=== PATIENT | female | born 2000 | race Caucasian/White ===

== ENCOUNTER 2023-06-03 10:12 | Outpatient (REF) | payer OTHER, SELFPAY ==
[2023-06-03 18:46] LABS: CT PCR NOT DETECTED (Not Detect.); NG PCR NOT DETECTED (Not Detect.)
[2023-06-04 14:04] LABS: BV Int Neg Control Negative (Negative); BV Int Pos Control Positive (Positive)
[2023-06-24 04:53] LABS: HPV mRNA E6/E7 rflx Not Detected (Not Detected)
== END 2023-06-03 10:13 | disposition home or self-care (01) ==
LOC: HO.LNP 10:12
PROVIDERS: PCP Nurse Practitioner Family; Visit Provider Advanced Practice Midwife
DX: Z01.419 Encounter for gynecological examination (general) (routine) without abnormal findings (principal); D68.51 Activated protein C resistance; Z79.899 Other long term (current) drug therapy; Z11.3 Encounter for screening for infections with a predominantly sexual mode of transmission
CPT/HCPCS: 0353U; 87480; 87510; 87624; 87660; 88142

== ENCOUNTER 2023-06-03 10:12 | Outpatient (AMB) | payer OTHER, SELFPAY ==
--- NOTE | 2023-06-03 10:13 | A.OFFVIS_ITS ---
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 She has never had a pelvic before. She has been sexually active but the last time was about a month ago she uses condoms. She has a strong family history of factor 5 Leiden and her grandmother has it her mother has it and so she got tested when she was very very young. She was told by her hypoid gear tester that she should avoid most hormonal methods of control. When she flew to [place] with her cousin they wore support stockings and did leg exercises while in flight. 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 [facility] Medical History (Updated 06/03/23 @ 10:55 by Jenn Munguia CNM) Acne Factor 5 Leiden mutation, heterozygous Surgical History (Updated 06/03/23 @ 10:19 by Jacey Garvin CMA) Hx of wisdom tooth extraction Family History (Updated 06/03/23 @ 10:20 by Jacey Garvin CMA) Mother Factor 5 Leiden mutation, heterozygous Social History Household Members: Family Housing: House Alcohol intake: current Alcohol intake frequency: holidays/special occasions only Patient Tobacco Use Status: Never used Tobacco Substance Use Type: Marijuana Current occupational status: employed 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 Sexual orientation: Straight/Heterosexual Gender identity: Female Female Reproductive History Menstrual Age of Menarche: 15 Duration of menses: 6-7 days Date of last menstrual period: 05/30/23 Total pregnancies: 0 Physical Exam Vital Signs: BMI result Body Mass Index 24.4 Const General: healthy appearing, comfortable, no acute distress, well developed and alert Nutritional Appearance: average body habitus Orientation/consciousness: patient oriented x3 Limitations: no limitations HEENT Head: Yes normocephalic Neck Neck: Yes normal visual inspection Chest Chest palpation & inspection: normal inspection of the chest Breast/axilla inspection: normal inspection of the breasts and normal inspection of the axillae Breast/axilla palpation: normal palpation of the breasts and normal palpation of the axillae Resp Effort & Inspection: normal respiratory effort GI Inspection: Yes normal to inspection, No Abdominal wall edema and No distended Palpation (GI): Soft to palpation and nontender Other: External vulva within normal limits vagina pink moist healthy appearing with scant normal appearing white discharge cervix is nulliparous pink smooth with small deviated slightly to patient's left along with small nontender midposition uterus. Adnexa not enlarged on either side able to palpate ligaments easily. No masses palpable. General: Yes bladder normal to palpation External Female Exam: normal external appearance and normal appearance of the urethra Speculum Exam - Vagina: normal appearance of the vagina, normal palpation and normal vaginal discharge Speculum Exam - Cervix: normal appearance of the cervix, normal palpation and nontender Bimanual exam- vagina & uterus: normal bimanual exam, normal palpation, uterine size normal, bladder normal to palpation, consistency normal, normal palpation, uterine mobility normal, uterine shape normal, No Cervical tenderness present, non-tender and no cervical motion tenderness Bimanual Exam- Adnexa, other: normal adnexae, no masses, normal and No adnexal tenderness Neuro General: patient oriented x3 Assessment & Plan Assessment & Plan (1) control counseling: Code(s): Z30.09 - Encounter for other general counseling and advice on contraception (2) Well woman exam with routine gynecological exam: Code(s): Z01.419 - Encounter for gynecological examination (general) (routine) without abnormal findings (3) Cervical cancer screening: Comment: First Pap 06/03/2023, has had Gardasil vaccine with Dr. Gonzalez at [facility]. Code(s): Z12.4 - Encounter for screening for malignant neoplasm of cervix (4) Screen for sexually transmitted diseases: Code(s): Z11.3 - Encounter for screening for infections with a predominantly sexual mode of transmission (5) Factor 5 Leiden mutation, heterozygous: Code(s): D68.51 - Activated protein C resistance Plan -----Discussed in this visit the following: healthy balanced diet, regular and consistent exercise, getting recommended health screens, doing the best she can for her particular health concerns, kegel exercises, pap smear screening and followup recommendations, mammography screening and SBE, normal changes in cycles in her life stage--- .----I reviewed available options for Control Methods and their associated side effect profiles. In particular, we discussed the method most of interest to her. Discussed that the methods of most concern given her inherited blood clotting issue would be control pills however all of the hormonal methods list some concern about blood clot formation to varying degrees. Discussed that for now condoms are very good in safe method when use consistently. Also discussed ParaGard IUD which is hormone free which she was not interested in at this time. Testing offered for STIs and recommended during the pelvic exam she declined blood work and believes some of it may have been done for school reasons. ---discussed what she has been told about the factor 5 Leiden issue and she seems aware of the family tendency for blood clot formation and has acted accordingly when appropriate. Reviewed exercise in general and Kegel's. Discussed her very normal anatomy and the normal patric of the vagina and that while we are testing for Gardnerella and Cathi they can be part of the normal patric and only need to be treated if they are symptomatic and causing difficulty she is not having symptoms and she has a very very normal appearing discharge at this time and pink healthy mucosa. Discussed the common finding of anatomical difference of her uterus being slightly levo rotated (to her left) and that this probably does not signify I anything I did offer a pelvic ultrasound on the off chance that she might have some sort of cyst or something that could explain it but as she is not having pain and not having any difficulty with it she decided against it for now. Her anatomy was completely within normal limits and there was no mass palpable on the right side. Good tone with Kegel Orders: Orders Bacterial Vaginosis Panel Today Z01.419 - Encounter for gynecological examination (general) (routine) without abnormal findings, Z11.3 - Encounter for screening for infections with a predominantly sexual mode of transmission CT NG by PCR Today Z01.419 - Encounter for gynecological examination (general) (routine) without abnormal findings, Z11.3 - Encounter for screening for infections with a predominantly sexual mode of transmission Pap Smear Today Z01.419 - Encounter for gynecological examination (general) (routine) without abnormal findings, Z11.3 - Encounter for screening for infections with a predominantly sexual mode of transmission Coding Level of Care Code New Pt Prev Care 18-39yr([id number] Diagnoses control counseling Z30.09 Well woman exam with routine gynecological exam Z01.419 Cervical cancer screening Z12.4 Screen for sexually transmitted diseases Z11.3 Factor 5 Leiden mutation, heterozygous D68.51
[2023-06-03 10:16] VITALS: BMI 24.4
== END 2023-06-03 11:06 | disposition home or self-care (01) ==
LOC: HO.HWS 10:12
PROVIDERS: PCP Nurse Practitioner Family; Visit Provider Advanced Practice Midwife
DX: Z30.09 Encounter for other general counseling and advice on contraception (principal); Z01.419 Encounter for gynecological examination (general) (routine) without abnormal findings; Z12.4 Encounter for screening for malignant neoplasm of cervix; Z11.3 Encounter for screening for infections with a predominantly sexual mode of transmission; D68.51 Activated protein C resistance
CPT/HCPCS: 99385

== ENCOUNTER 2023-06-17 08:49 | Outpatient (AMB) | payer OTHER, SELFPAY ==
--- NOTE | 2023-06-17 08:51 | A.OFFPC_ITS ---
Vital Signs 06/17/23 08:54 Height 5 ft 7 in Weight 158 lb 6 oz BMI 24.8 BP 100/60 Blood Pressure Location Lt brachial Position Sitting Pulse 66 Pulse Source Pulse Oximeter Pulse Oximetry (%) 99 Oxygen Delivery Method Room Air Intake Visit Reasons: New patient-requesting physical Intake Note: Patient is a new patient here to establish care for Factor 5. Transferring care from Dr Magaña ([facility]). Medical records have not been requested and have not received. E Learning Designer Required: No Asbestos Remover: Not Required per policy Accompanied by: Self / Same As Patient Allergies No Known Allergies Allergy (Verified 06/17/23 09:09) Medication List - Last Reconciled 06/17/23 by GIOVANNA Rivas Tobacco use date assessed: 06/17/23 Dental Screening Dental Screen Date: 06/17/23 Did you have a dental visit in the last 12 months?: Yes Did you have a dental problem in the last 6 months where you did not have access to dental care?: No Was dental information given to patient?: Patient has dentist HPI HPI Comments History of Present Illness Details 23-year-old female new patient presents today for physical exam. Past medical history significant for Factor V Leiden mutation. Patient states has bruising more frequently. Patient does have scattered resolving bruising to right lower forearm scattered old bruising right forearm. Denies any recollection of acute injury. Labs ordered to further evaluate. Eye exam: Recommended every couple of years. OBGYN: May 2023, pap smear WNL. Dr. Gonzalez at [facility]. [facility] Medical History Factor 5 Leiden mutation, heterozygous Acne Surgical History History of eye surgery Hx of wisdom tooth extraction Family History (Updated 06/17/23 @ 09:11 by GIOVANNA Rivas) Mother Factor 5 Leiden mutation, heterozygous Father Liver transplant recipient Alcoholic cirrhosis of liver Other Substance use disorder Social History (Updated 06/17/23 @ 09:12 by GIOVANNA Rivas) Household Members: Family Housing: House Alcohol intake: current Alcohol intake frequency: a few times a month Patient Tobacco Use Status: Never used Tobacco Tobacco use type: Smokeless Tobacco e-Cigarette/Vaping Use: Currently Using Second Hand Smoke Exposure: No Substance Use Type: Marijuana service: No Current occupational status: employed Current occupation: Sexual orientation: Straight/Heterosexual Gender identity: Female Cognitive needs: No Hearing needs: No Vision needs: No Female Reproductive History Menstrual Age of Menarche: 15 Questionnaire PHQ-9 Over the last 2 weeks, how often have you been bothered by any of the following problems? 1. Little interest or pleasure in doing things: not at all 2. Feeling down, depressed, or hopeless: not at all 3. Trouble falling or staying asleep, or sleeping too much: not at all 4. Feeling tired or having little energy: not at all 5. Poor appetite or overeating: not at all 6. Feeling bad about yourself - or that you are a failure or have let yourself or your family down: not at all 7. Trouble concentrating on things, such as reading the newspaper or watching television: not at all 8. Moving or speaking so slowly that other people could have noticed. Or the opposite - being so fidgety or restless that you have been moving around a lot more than usual: not at all 9. Thoughts that you would be better off or of hurting yourself in some way: not at all Total score: 0 Depression Screening Interpretation: Negative 38278 - PHQ-9 Billing: Yes Source: Developed by Drs. Baldemar Loo, Kathleen Gray, Rashi Haney and colleagues, with an educational bella from [employer]. Thrive Questionnaire Date Thrive assessed: 06/17/23 I am a: Patient What is your living situation today?: I have a steady place to live Within the past 12 months, did the food you bought not last and you didn't have the money to get more?: Never true Within the past 12 months, did you worry whether your food would run out before you got money to buy more?: Never true Do you have trouble paying for medicines?: No Do you have trouble getting transportation to medical appointments?: No Do you have trouble paying your heating and electricity bill?: No Do you have trouble taking care of your child, family member or friend?: No Do you have trouble with day-to-day activities such as bathing, preparing meals, shopping, managing finances, etc.?: No Are you currently unemployed and looking for a job?: No Are you interested in more education?: No Currently or been in a relationship where the following occur: no concerns reported AUDIT C Alcohol Use Questionnaire (AUDIT-C) 1. How often do you have a drink containing alcohol?: Never Total Score: 0 MANDA-7 AMB Questionnaire MANDA-7 Date MANDA - 7 assessed: 06/17/23 Feeling nervous, anxious, or on edge: 1 = Several days Not being able to stop or control worryin = Several days Worrying too much about different things: 1 = Several days Trouble relaxin = Several days Being so restless that it is hard to sit still: 0 = Not at all Becoming easily annoyed or irritable: 1 = Several days Feeling afraid as if something awful might happen: 0 = Not at all Total MANDA-7 score (0-4 normal; 5-9 mild; 10-14 moderate; 15-21 severe): 5 Source: Developed by Drs. Baldemar Loo, Kathleen Gray, Rashi Haney and colleagues, with an educational bella from [employer]. MANDA-7 Assessment Billing MANDA-7 Assessment Tool: MANDA-7 Assessment 23328 Review of Systems Const Denies chills, Denies fatigue, Denies fever(s) and Denies poor appetite Eyes Denies no additional complaints ENT Reports Normal hearing present Card Denies chest pain, Denies syncope, Denies rapid heart rate and Denies dyspnea Resp Denies cough and Denies dyspnea GI Denies change in stool character, Denies constipation, Denies diarrhea, Denies nausea and Denies vomiting Denies urinary frequency, Denies dysuria and Denies urinary urgency Skin/Breast Reports unusual bruising Neuro Reports Normal hearing present, Denies confusion and Denies syncope Psych Denies confusion Endo Denies fatigue Physical exam (Primary Care) Vital Signs: Last Vital Signs Pulse 66 06/17/23 08:54 BP 100/60 06/17/23 08:54 Pulse Ox 99 06/17/23 08:54 Oxygen Delivery Method Room Air 06/17/23 08:54 BMI result Body Mass Index 24.8 Tobacco/Smoking Status: Tobacco use Status Tobacco use date assessed 06/17/23 06/17/23 09:04 Patient Tobacco Use Status Never used Tobacco 06/17/23 09:12 Tobacco use type Smokeless Tobacco 06/17/23 09:12 e-Cigarette/Vaping Use Currently Using 06/17/23 09:12 PHQ-9: PHQ-9 Score PHQ-9: Total score 0 06/17/23 09:20 Depression Screening Interpretation: Negative Thrive Assessment: Date of Thrive Assessment Date Thrive assessed 06/17/23 06/17/23 09:04 Currently or been in a relationship where the following occur: no concerns reported Const General: No confusion Orientation/consciousness: No confusion HENMT Head: Yes normocephalic and Yes atraumatic Ears: external ears normal and TM's normal bilaterally General nose exam: Normal external nose present and Normal nasal mucous membranes and turbinates present Face and sinus: Yes normal facial exam and Yes sinuses nontender Mouth: moist mucous membranes Throat: Yes tonsils normal Eyes Conjunctivae: conjunctivae normal Sclerae: sclerae normal Pupils: Equal, round and reactive pupils present and Pupils normal by confrontation EOM: EOMs intact bilaterally Direct Ophthalmoscopy: normal light reflex Neck Neck: Yes no lymphadenopathy and Yes supple Thyroid: Thyroid normal Chest Chest palpation & inspection: normal inspection of the chest Resp Effort & Inspection: normal respiratory effort Auscultation: clear to auscultation bilaterally, no crackles, no rhonchi and no wheezes Cardio Rate: regular rate Rhythm: regular rhythm Peripheral pulses: radial pulses present and dorsalis pedis present GI Inspection: Yes normal to inspection Palpation (GI): Soft to palpation, nontender and No hepatosplenomegaly present Auscultation: normoactive bowel sounds Skin Other: Pre fading bruises noted to right lower forearm. General skin exam: no rashes or lesions noted Neuro General: No confusion Cranial nerves: Yes Equal, round and reactive pupils present and Yes Normal hearing present Cognition (Neuro): normal cognition Gait exam (Neuro): Normal gait present Motor exam (neuro): 5/5 motor strength present throughout Deep tendon reflexes (DTR's): Right brachioradialis reflex intensity grade: 2+, Left brachioradialis reflex intensity grade: 2+, Right patellar reflex intensity grade: 2+ and Left patellar reflex intensity grade: 2+ Extrem General: No edema Assessment and Plan Assessment & Plan (1) Factor 5 Leiden mutation, heterozygous: Code(s): D68.51 - Activated protein C resistance (2) Bruising: Code(s): T14.8XXA - Other injury of unspecified body region, initial encounter Plan: CBC and PT/ INR ordered (3) Physical exam, annual: Code(s): Z00.00 - Encounter for general adult medical examination without abnormal findings Plan: Follow up in 1 year. Orders: Orders Prothrombin Time INR Today T14.8XXA - Other injury of unspecified body region, initial encounter Comprehensive Met. Panel Today D68.51 - Activated protein C resistance, T14.8XXA - Other injury of unspecified body region, initial encounter Complete Blood Count Auto Diff Today Z13.0 - Encounter for screening for diseases of the blood and blood-forming organs and certain disorders involving the immune mechanism TSH reflex Free T4 Today Z13.29 - Encounter for screening for other suspected endocrine disorder Coding Level of Care Code New Pt Prev Care 18-39yr(77120 Diagnoses Factor 5 Leiden mutation, heterozygous D68.51 Bruising T14.8XXA Physical exam, annual Z00.00 Additional Codes MANDA-7 Assessment Billing - MANDA-7 Assessment Tool: MANDA-7 Assessment 10652 ([id number])
[2023-06-17 08:54] VITALS: BP 100/60; PULSE 66; O2SAT 99; BMI 24.8
== END 2023-06-17 09:24 | disposition home or self-care (01) ==
PROVIDERS: PCP Nurse Practitioner Family; Visit Provider Nurse Practitioner Family
DX: D68.51 Activated protein C resistance (principal); T14.8XXA Other injury of unspecified body region, initial encounter; Z00.00 Encounter for general adult medical examination without abnormal findings
CPT/HCPCS: 99385

== ENCOUNTER 2023-06-17 09:46 | Outpatient (REF) | payer OTHER, SELFPAY ==
[2023-06-17 10:10] LABS: MANUAL DIFF FLAG NO
[2023-06-17 10:23] LABS: Eosinophils Absolute Auto 0.1 X10*3/uL (0.0-0.4); Eosinophils Percent Auto 1.9 % (0-4); Hematocrit 42.6 % (37.0-47.0); Hemoglobin 14.2 g/dl (12.0-16.0); Imm Gran Abs Auto 0.01 X10*3/uL (0.00-0.03); Imm Gran Pct Auto 0.2 % (0.0-0.4); Lymphocytes Absolute Auto 1.6 X10*3/uL (1.2-4.9); Lymphocytes Percent Auto 38.6 % (20-40); Mean Corpuscular HGB Conc 33.3 g/dl (31.0-35.0); Mean Corpuscular Hemoglobin 29.1 pg (27.0-33.0); Mean Corpuscular Volume 87.3 fL (80.0-98.0); Mean Platelet Volume 11.4 fL (9.4-12.3); Monocytes Absolute Auto 0.4 X10*3/uL (0.1-1.2); Neutrophils Percent Auto 48.3 % (45-73); Platelet Count 180 X10*3/uL (160-400); Red Blood Count 4.88 X10*6/uL (4.20-5.50); Red Cell Distribution Width 12.8 % (11.0-16.0); White Blood Count 4.2 X10*3/uL (4.8-10.8)
[2023-06-17 10:39] LABS: Prothrombin Time 11.6 SEC (11.1-13.3)
[2023-06-17 11:01] LABS: Alanine Aminotransferase 8 U/L (0-31); Albumin Level 4.6 g/dL (3.5-5.0); Alkaline Phosphatase 52 U/L (39-117); Anion Gap 9 (12-20); Aspartate Amino Transferase 14 U/L (5-31); Bilirubin Total 0.9 mg/dL (0.0-1.0); Blood Urea Nitrogen 6 mg/dL (9-16); Calcium 9.8 mg/dL (8.4-10.2); Carbon Dioxide 28 mmol/L (22-29); Chloride 106 mmol/L (96-108); Estimated Glomerular Filt Rate > 60; Glucose Random 84 mg/dL (60-115); Potassium 3.8 mmol/L (3.3-5.1); Sodium 139 mmol/L (135-145); Total Protein 7.2 g/dL (6.5-8.0)
[2023-06-17 11:21] LABS: TSH reflex Free T4 1.05 uIU/mL (0.32-4.0)
== END 2023-06-17 09:47 | disposition home or self-care (01) ==
LOC: HO.LAB 09:46
PROVIDERS: PCP Nurse Practitioner Family; Visit Provider Nurse Practitioner Family
DX: D68.51 Activated protein C resistance (principal); T14.8XXA Other injury of unspecified body region, initial encounter; Z13.0 Encounter for screening for diseases of the blood and blood-forming organs and certain disorders involving the immune mechanism; Z13.29 Encounter for screening for other suspected endocrine disorder
CPT/HCPCS: 36415; 80053; 84443; 85025; 85610

== ENCOUNTER → 2023-11-14 15:23 | Outpatient (AMB) | payer OTHER, SELFPAY ==
--- NOTE | 2023-11-14 15:39 | AM.OFFWIN_ITS ---
Intake Vital Signs 11/14/23 15:40 Height 5 ft 7 in Weight 165 lb BMI 25.8 BP 110/70 Blood Pressure Location Rt brachial Position Sitting Pulse 104 H Pulse Source Pulse Oximeter Pulse Oximetry (%) 96 Oxygen Delivery Method Room Air Intake Visit Reasons: ? UTI Intake Note: Patient is here today for possible uti, Symptoms are burning, frequency, disco mfort on set four days ago. Otc with some relief Patient Tobacco Use Status: Never used Tobacco Manager Wound Care Required: No Sales Representative Metals: Not Required per policy Accompanied by: Self / Same As Patient Allergies No Known Allergies Allergy (Verified 11/14/23 16:30) Medication List - Last Reconciled 11/14/23 by GIOVANNA Ybarra-SHERI No Known Home Meds Do you need a note to return to daycare/school/sports/work: No HPI HPI Comments History of Present Illness Details Thinks she has a UTI Last one about 3 months ago Denies more than 3 UTI/year Sx: burning w/ urination, frequency, incomplete bladder emptying Sx started on Friday. Self tx w/ Cystex this resolved sx. Now only having mild sx in the AM upon waking. LMP 10/15/23 Denies chance of preg, vaginal discharge, n/v, fever Did have mild vaginal itch PFSH Medical History Factor 5 Leiden mutation, heterozygous Acne Surgical History History of eye surgery Hx of wisdom tooth extraction Family History Mother Factor 5 Leiden mutation, heterozygous Father Liver transplant recipient Alcoholic cirrhosis of liver Other Substance use disorder Social History (Updated 06/17/23 @ 09:12 by GIOVANNA Rivas) Household Members: Family Housing: House Alcohol intake: current Alcohol intake frequency: a few times a month Patient Tobacco Use Status: Never used Tobacco Tobacco use type: Smokeless Tobacco e-Cigarette/Vaping Use: Currently Using Second Hand Smoke Exposure: No Substance Use Type: Marijuana service: No Current occupational status: employed 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 Sexual orientation: Straight/Heterosexual Gender identity: Female Cognitive needs: No Hearing needs: No Vision needs: No Female Reproductive History Menstrual Age of Menarche: 15 Review of Systems Const All systems reviewed & are unremarkable except as noted in HPI and below Physical Exam Vital Signs: Last Vital Signs Pulse 104 H 11/14/23 15:40 BP 110/70 11/14/23 15:40 Pulse Ox 96 11/14/23 15:40 Oxygen Delivery Method Room Air 11/14/23 15:40 BMI result Body Mass Index 25.8 Const Other: Awake alert oriented Mucous membranes moist Regular rate and rhythm Lung sounds clear To auscultation bilat no CVAT bilat No suprapubic tenderness Results AMB Urinalysis, Automated UA Leukoctes 0 Lilibeth/uL Last Edit by STERLING Medina on 11/14/23 15:53 UA Nitrite Negative Last Edit by Yvan Luke [facility] on 11/14/23 15:53 UA Urobilinogen 0 mg/dL Last Edit by Yvan Luke [facility] on 11/14/23 15:53 UA Protein 0 mg/dL Last Edit by Yvan Luke [facility] on 11/14/23 15:53 UA pH 7.5 Last Edit by Yvan Luke [facility] on 11/14/23 15:53 UA Blood 0 Sreedhar/uL Last Edit by Yvan Luke [facility] on 11/14/23 15:53 UA Specific [place] 1.010 Last Edit by Yvan Luke [facility] on 11/14/23 15: 53 UA Ketone Negative Last Edit by STERLING Medina on 11/14/23 15:53 UA Bilirubin 0 mg/dL Last Edit by Yvan Luke [facility] on 11/14/23 15:53 UA Glucose 0 mg/dL Last Edit by Yvan Luke [facility] on 11/14/23 15:53 Results Reviewed Results Reviewed: Laboratory Last Values Urine pH (Auto) 7.5 11/14/23 15:51 Specific [place] (Auto) 1.010 11/14/23 15:51 Urine Protein (Auto) 0 mg/dL 11/14/23 15:51 Glucose (UA)(Auto) 0 mg/dL 11/14/23 15:51 Urine Ketones (Auto) Negative 11/14/23 15:51 Urine Blood (Auto) 0 Sreedhar/uL 11/14/23 15:51 Urine Nitrite (Auto) Negative 11/14/23 15:51 Urine Bilirubin (Auto) 0 mg/dL 11/14/23 15:51 Urine Urobilinogen (Auto) 0 mg/dL 11/14/23 15:51 Leukocyte Esterase (Auto) 0 Lilibeth/uL 11/14/23 15:51 Assessment & Plan Assessment & Plan (1) UTI symptoms: Code(s): R39.9 - Unspecified symptoms and signs involving the genitourinary system Plan Urine dip today is negative in the setting of taking an [id number] remedy. I have advised her to withhold this medication for 48 hours and if her symptoms are still present then she can go ahead and submit a urine sample. I have given her the collection device in the order is on file. I have asked that she send me a message in the portal if she is to submit a urine sample so that I can be aware and keep an eye on this. Orders: Orders UA CC w/rflx Micro + Cult Today R39.9 - Unspecified symptoms and signs involving the genitourinary system AMB Urinalysis Automated Today Z13.9 - Encounter for screening, unspecified Coding Level of Care Code Est Pt Level 3 (05246) Diagnoses UTI symptoms R39.9
[2023-11-14 15:40] VITALS: BP 110/70; PULSE 104; O2SAT 96; BMI 25.8
[2023-11-14 21:33] LABS: Appearance Urine Clear; Color Urine Yellow; Glucose Urine UA Negative (Negative); Leukocyte Esterase Urine Negative (Negative); Nitrite Urine Negative (Negative); Specific Gravity - Urine <= 1.005 (1.005-1.025); Urine Blood Negative (Negative); Urine Ketones Negative (Negative); Urine Protein Negative (Neg-Trace)
== END ==
PROVIDERS: PCP Internal Medicine; Visit Provider Nurse Practitioner Family
DX: R39.9 Unspecified symptoms and signs involving the genitourinary system (principal)
CPT/HCPCS: 81003; 99213

== ENCOUNTER 2023-11-26 12:04 | Outpatient (REF) | payer OTHER, SELFPAY ==
[2023-11-26 14:01] LABS: Appearance Urine Clear; Color Urine Yellow; Glucose Urine UA Negative (Negative); Leukocyte Esterase Urine Negative (Negative); Nitrite Urine Negative (Negative); Specific Gravity - Urine 1.025 (1.005-1.025); Urine Blood Negative (Negative); Urine Ketones Negative (Negative); Urine Protein Negative (Neg-Trace)
== END 2023-11-26 12:05 | disposition home or self-care (01) ==
LOC: HO.HMGCLDS 12:04
PROVIDERS: PCP Internal Medicine; Visit Provider Nurse Practitioner Family
DX: R39.9 Unspecified symptoms and signs involving the genitourinary system (principal)
CPT/HCPCS: 81003

== ENCOUNTER 2023-11-28 09:10 | Outpatient (AMB) | payer OTHER, SELFPAY ==
[2023-11-28 09:15] VITALS: BP 118/68; PULSE 95; TEMP 36.6; O2SAT 99; BMI 24.4
--- NOTE | 2023-11-28 09:15 | AM.OFFWIN_ITS ---
Intake Vital Signs 11/28/23 09:15 Height 5 ft 7 in Weight 156 lb BMI 24.4 BP 118/68 Blood Pressure Location Lt brachial Position Sitting Pulse 95 Pulse Source Pulse Oximeter Temp 97.8 F Temp Source Temporal Artery Scan Pulse Oximetry (%) 99 Oxygen Delivery Method Room Air Intake Visit Reasons: EP STI test Intake Note: pt is here today for STI test Patient Tobacco Use Status: Never used Tobacco Allergies No Known Allergies Allergy (Verified 11/28/23 09:15) Do you need a note to return to daycare/school/sports/work: No HPI EP STI test 2 HPI Details Patient is a 23-year-old female comes to the walk-in clinic complaining of dysuria, vaginal irritation, and urinary frequency but the feeling of not completely being able to void for the last few weeks. She states that urine dips have been unremarkable, so she is also worried about sexually transmitted diseases as she has had unprotected sexual intercourse recently. She denies vaginal discharge, abdominal or pelvic pain, back or flank pain, nausea vomiting or diarrhea, rash, vaginal bleeding, , joint pain or swelling, or other significant associated symptoms. [facility] Medical History Factor 5 Leiden mutation, heterozygous Acne Surgical History History of eye surgery Hx of wisdom tooth extraction Family History Mother Factor 5 Leiden mutation, heterozygous Father Liver transplant recipient Alcoholic cirrhosis of liver Other Substance use disorder Social History Household Members: Family Housing: House Alcohol intake: current Alcohol intake frequency: a few times a month Patient Tobacco Use Status: Never used Tobacco Tobacco use type: Smokeless Tobacco e-Cigarette/Vaping Use: Currently Using Second Hand Smoke Exposure: No Substance Use Type: Marijuana service: No Current occupational status: employed 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 Sexual orientation: Straight/Heterosexual Gender identity: Female Cognitive needs: No Hearing needs: No Vision needs: No Female Reproductive History Menstrual Age of Menarche: 15 Review of Systems Const All systems reviewed & are unremarkable except as noted in HPI and below Physical Exam Vital Signs: Last Vital Signs Temp 97.8 F 11/28/23 09:15 Pulse 95 11/28/23 09:15 BP 118/68 11/28/23 09:15 Pulse Ox 99 11/28/23 09:15 Oxygen Delivery Method Room Air 11/28/23 09:15 BMI result Body Mass Index 24.4 Const General: cooperative, healthy appearing, comfortable, no acute distress, alert, awake, Physically active and well groomed; No anxious, diaphoretic, ill appearing, intoxicated appearing, poor hygiene or tired appearing Nutritional Appearance: average body habitus Limitations: no limitations Resp Effort & Inspection: normal respiratory effort GI Palpation (GI): Soft to palpation, not firm, nontender, no guarding and not rigid General: Yes no CVA tenderness Back/Spine/Pelvis Back: no CVA tenderness Psych Appearance: grossly normal Mental Status: mental status grossly normal Speech and movement: Normal speech and movement present Affect: normal affect Attitude: cooperative Thought process: Normal thought process present Insight: Good insight present (Psych) Judgement: Good judgement present (Psych) Results AMB Urinalysis, Automated UA Leukoctes 15 Lilibeth/uL Last Edit by Rodriguez Barboza CMA on 11/28/23 09:26 UA Nitrite Negative Last Edit by Rodriguez Barboza CMA on 11/28/23 09:26 UA Urobilinogen 0.2 mg/dL Last Edit by Rodriguez Barboza CMA on 11/28/23 09 :26 UA Protein 15 mg/dL Last Edit by Rodriguez Barboza CMA on 11/28/23 09:26 UA pH 6.0 Last Edit by Rodriguez Barboza CMA on 11/28/23 09:26 UA Blood 0 Sreedhar/uL Last Edit by Rodriguez Barboza CMA on 11/28/23 09:26 UA Specific Coleman 1.025 Last Edit by Rodriguez Barboza CMA on 11/28/23 09:26 UA Ketone Negative Last Edit by Rodriguez Barboza CMA on 11/28/23 09:26 UA Bilirubin 1 mg/dL Last Edit by Rodriguez Barboza CMA on 11/28/23 09:26 UA Glucose 0 mg/dL Last Edit by Rodriguez Barboza CMA on 11/28/23 09:26 AMB Test Urine AMB Test Urine Negative Last Edit by Rodriguez Barboza CMA on 11/28/23 10:23 Results Reviewed Results Reviewed: Laboratory Last Values Urine pH (Auto) 6.0 11/28/23 09:26 Specific Coleman (Auto) 1.025 11/28/23 09:26 Urine Protein (Auto) 15 mg/dL 11/28/23 09:26 Glucose (UA)(Auto) 0 mg/dL 11/28/23 09:26 Urine Ketones (Auto) Negative 11/28/23 09:26 Urine Blood (Auto) 0 Sreedhar/uL 11/28/23 09:26 Urine Nitrite (Auto) Negative 11/28/23 09:26 Urine Bilirubin (Auto) 1 mg/dL 11/28/23 09:26 Urine Urobilinogen (Auto) 0.2 mg/dL 11/28/23 09:26 Leukocyte Esterase (Auto) 15 Lilibeth/uL 11/28/23 09:26 Tst Clinic Negative 11/28/23 10:22 Assessment & Plan Assessment & Plan (1) Dysuria: Code(s): R30.0 - Dysuria Plan: Patient complains of dysuria with vaginal discomfort, possible urinary tract infection, will start her on Macrobid today. Her test was negative, and vaginosis panel to rule out BV or yeast is pending. While she has had unprotected intercourse recently, and has requested an STD panel, other than the dysuria and some vaginal irritation symptoms, she has no discharge, pelvic or abdominal pain, vaginal bleeding, or other symptoms that would warrant treating for STD prior to full testing resulted. She knows to follow up if symptoms persist or worsen, or go to emergency department with worrisome symptoms. Orders: Orders AMB Urinalysis Automated 11/28/23 Z13.9 - Encounter for screening, unspecified Giana Aguila NP CT NG by PCR 11/28/23 R30.0 - Dysuria JEFFREY Chopra Hepatitis B Surface Antigen 11/28/23 Z11.3 - Encounter for screening for infections with a predominantly sexual mode of transmission JEFFREY Chopra Hepatitis C Antibody 11/28/23 Z11.3 - Encounter for screening for infections with a predominantly sexual mode of transmission JEFFREY Chopra Bacterial Vaginosis Panel 11/28/23 B96.89 - Other specified bacterial agents as the cause of diseases classified elsewhere, N76.0 - Acute vaginitis JEFFREY Chopra AMB HCG Urine Test 11/28/23 R11.0 - Nausea JEFFREY Chopra HIV Ab/Ag 11/28/23 Z11.3 - Encounter for screening for infections with a predominantly sexual mode of transmission JEFFREY Chopra Medications: New nitrofurantoin monohyd/m-cryst 100 mg (Macrobid) must administer with a meal/food 100 mg PO Q12H 5 days 10 caps 0RF R82.90 - Unspecified abnormal findings in urine JEFFREY Chopra Coding Level of Care Code Est Pt Level 4 (46471) Diagnoses Dysuria R30.0
== END 2023-11-28 10:18 | disposition home or self-care (01) ==
PROVIDERS: PCP Internal Medicine; Visit Provider Physician Assistant Medical
DX: R11.0 Nausea (principal)
CPT/HCPCS: 81003; 81025; 99214

== ENCOUNTER 2023-11-28 10:07 | Outpatient (REF) | payer OTHER, SELFPAY | END 2023-11-28 10:08 | disposition home or self-care (01) | LOC: HO.LAB 10:07 | PROVIDERS: Visit Provider Physician Assistant Medical | DX: Z13.89 Encounter for screening for other disorder (principal) ==

== ENCOUNTER 2023-11-28 10:10 | Outpatient (REF) | payer OTHER, SELFPAY ==
[2023-11-28 16:57] LABS: CT PCR NOT DETECTED (Not Detect.); NG PCR NOT DETECTED (Not Detect.)
[2023-11-29 14:43] LABS: BV Int Neg Control Negative (Negative); BV Int Pos Control Positive (Positive)
[2023-11-30 04:10] LABS: HIV AB/AG Nonreactive (Nonreactive); HIV Num 1 0.04 S/CO (0.00-0.99); Hepatitis B Surface Antigen Negative (Negative); ~HepC Num1 0.06 S/CO (0.00-0.79); ~Hepatitis C Antibody Nonreactive (Nonreactive)
== END 2023-11-28 10:11 | disposition home or self-care (01) ==
LOC: HO.HMGCLDS 10:10
PROVIDERS: PCP Internal Medicine; Visit Provider Physician Assistant Medical
DX: Z11.4 Encounter for screening for human immunodeficiency virus [HIV] (principal); R30.0 Dysuria; N76.0 Acute vaginitis; B96.89 Other specified bacterial agents as the cause of diseases classified elsewhere; Z20.2 Contact with and (suspected) exposure to infections with a predominantly sexual mode of transmission
CPT/HCPCS: 0353U; 86803; 87340; 87389; 87480; 87510; 87660

== ENCOUNTER 2023-12-16 10:26 | Outpatient (AMB) | payer OTHER, SELFPAY ==
--- NOTE | 2023-12-16 10:32 | A.OFFPC_ITS ---
Vital Signs 12/16/23 10:38 Height 5 ft 7 in Weight 167 lb 8 oz BMI 26.2 BP 100/62 Blood Pressure Location Lt brachial Position Sitting Pulse 96 Pulse Source Pulse Oximeter Pulse Oximetry (%) 99 Oxygen Delivery Method Room Air Intake Visit Reasons: f/u (emre pt) Intake Note: Patient is here today for DELANEY. Requesting for testing for STI and test. In Home Sales Consultant Required: No Run Lead: Not Required per policy Accompanied by: Self / Same As Patient Allergies No Known Allergies Allergy (Verified 12/27/23 15:23) Medication List - Last Reconciled 12/27/23 by Jya Oliveira MD No Known Home Meds Tobacco use date assessed: 12/16/23 Dental Screening Dental Screen Date: 12/16/23 Did you have a dental visit in the last 12 months?: No Did you have a dental problem in the last 6 months where you did not have access to dental care?: No Was dental information given to patient?: No HPI f/u (emre pt) HPI Details 23-year-old female presents to the [facility] requesting an annual physical. In addition she would like a blood test and and a test to rule out STI. [facility] Medical History Factor 5 Leiden mutation, heterozygous Acne Surgical History History of eye surgery Hx of wisdom tooth extraction Family History Mother Factor 5 Leiden mutation, heterozygous Father Liver transplant recipient Alcoholic cirrhosis of liver Other Substance use disorder Social History Household Members: Family Housing: House Alcohol intake: current Alcohol intake frequency: a few times a month Patient Tobacco Use Status: Never used Tobacco Tobacco use type: Smokeless Tobacco e-Cigarette/Vaping Use: Currently Using Second Hand Smoke Exposure: No Substance Use Type: Marijuana service: No Current occupational status: employed 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 1. Little interest or pleasure in doing things: not at all 2. Feeling down, depressed, or hopeless: not at all 3. Trouble falling or staying asleep, or sleeping too much: not at all 4. Feeling tired or having little energy: not at all 5. Poor appetite or overeating: not at all 6. Feeling bad about yourself - or that you are a failure or have let yourself or your family down: not at all 7. Trouble concentrating on things, such as reading the newspaper or watching television: not at all 8. Moving or speaking so slowly that other people could have noticed. Or the opposite - being so fidgety or restless that you have been moving around a lot more than usual: not at all 9. Thoughts that you would be better off or of hurting yourself in some way: not at all Total score: 0 Depression Screening Interpretation: Negative Depression Screening Done: Yes Source: Developed by Drs. Baldemar Loo, Kathleen Gray, Rashi Haney and colleagues, with an educational bella from [employer]. Thrive Questionnaire Date Thrive assessed: 12/16/23 I am a: Patient What is your living situation today?: I have a steady place to live Within the past 12 months, did the food you bought not last and you didn't have the money to get more?: Never true Within the past 12 months, did you worry whether your food would run out before you got money to buy more?: Never true Do you have trouble paying for medicines?: No Do you have trouble getting transportation to medical appointments?: No Do you have trouble paying your heating and electricity bill?: No Do you have trouble taking care of your child, family member or friend?: No Do you have trouble with day-to-day activities such as bathing, preparing meals, shopping, managing finances, etc.?: No Are you currently unemployed and looking for a job?: No Are you interested in more education?: No Currently or been in a relationship where the following occur: no concerns reported THRIVE Score: 0 AUDIT C Alcohol Use Questionnaire (AUDIT-C) 1. How often do you have a drink containing alcohol?: Never Total Score: 0 MANDA-7 AMB Questionnaire MANDA-7 Date MANDA - 7 assessed: 12/16/23 Feeling nervous, anxious, or on edge: 0 = Not at all Not being able to stop or control worryin = Not at all Worrying too much about different things: 0 = Not at all Trouble relaxin = Not at all Being so restless that it is hard to sit still: 0 = Not at all Becoming easily annoyed or irritable: 0 = Not at all Feeling afraid as if something awful might happen: 0 = Not at all Total MANDA-7 score (0-4 normal; 5-9 mild; 10-14 moderate; 15-21 severe): 0 Source: Developed by Drs. Baldemar Loo, Kathleen Gray, Rashi Haney and colleagues, with an educational bella from [employer]. Physical exam (Primary Care) Vital Signs: Last Vital Signs Pulse 96 12/16/23 10:38 BP 100/62 12/16/23 10:38 Pulse Ox 99 12/16/23 10:38 Oxygen Delivery Method Room Air 12/16/23 10:38 BMI result Body Mass Index 26.2 Tobacco/Smoking Status: Tobacco use Status Tobacco use date assessed 12/16/23 12/16/23 10:40 Patient Tobacco Use Status Never used Tobacco 12/16/23 10:42 Tobacco use type Smokeless Tobacco 12/16/23 10:42 e-Cigarette/Vaping Use Currently Using 12/16/23 10:42 Are you ready to quit: No Tobacco cessation counseling provided: No PHQ-9: PHQ-9 Score PHQ-9: Total score 0 12/16/23 14:22 Depression Screening Interpretation: Negative Thrive Assessment: Date of Thrive Assessment Date Thrive assessed 12/16/23 12/16/23 10:40 Currently or been in a relationship where the following occur: no concerns reported Const General: cooperative and healthy appearing Nutritional Appearance: well nourished Orientation/consciousness: patient oriented x3 Limitations: no limitations HENMT Head: Yes normal to inspection Eyes General: appearance normal, both eyes and all related structures Neck Neck: Yes normal visual inspection Chest Chest palpation & inspection: normal palpation of entire chest wall Resp Effort & Inspection: normal respiratory effort Neuro General: patient oriented x3 Assessment and Plan Assessment & Plan (1) Screen for sexually transmitted diseases: Code(s): Z11.3 - Encounter for screening for infections with a predominantly sexual mode of transmission Plan: Test ordered. Will call with the results. (2) UTI symptoms: Code(s): R39.9 - Unspecified symptoms and signs involving the genitourinary system Plan: Urinalysis ordered. (3) Factor 5 Leiden mutation, heterozygous: Code(s): D68.51 - Activated protein C resistance Plan: This condition is stable. (4) Annual physical exam: Code(s): Z00.00 - Encounter for general adult medical examination without abnormal findings Orders: Orders Complete Blood Count no Diff 12/16/23 R39.9 - Unspecified symptoms and signs involving the genitourinary system, Z11.3 - Encounter for screening for infections with a predominantly sexual mode of transmission HCG Quantitative 12/16/23 R39.9 - Unspecified symptoms and signs involving the genitourinary system, Z11.3 - Encounter for screening for infections with a predominantly sexual mode of transmission Basic Metabolic Panel 12/16/23 Z11.3 - Encounter for screening for infections with a predominantly sexual mode of transmission, R39.9 - Unspecified symptoms and signs involving the genitourinary system CT NG by PCR 12/16/23 R39.9 - Unspecified symptoms and signs involving the genitourinary system, Z11.3 - Encounter for screening for infections with a predominantly sexual mode of transmission Liver Panel 12/16/23 R39.9 - Unspecified symptoms and signs involving the genitourinary system, Z11.3 - Encounter for screening for infections with a predominantly sexual mode of transmission Thyroid Stimulating Hormone 12/16/23 R39.9 - Unspecified symptoms and signs involving the genitourinary system, Z11.3 - Encounter for screening for infections with a predominantly sexual mode of transmission Coding Level of Care Code Est Pt Prev Care 18-39y(70875) Diagnoses Screen for sexually transmitted diseases Z11.3 UTI symptoms R39.9 Factor 5 Leiden mutation, heterozygous D68.51 Annual physical exam Z00.00
[2023-12-16 10:38] VITALS: BP 100/62; PULSE 96; O2SAT 99; BMI 26.2
== END 2023-12-16 11:15 | disposition home or self-care (01) ==
PROVIDERS: PCP Internal Medicine; Visit Provider Internal Medicine
DX: Z11.3 Encounter for screening for infections with a predominantly sexual mode of transmission (principal); R39.9 Unspecified symptoms and signs involving the genitourinary system; D68.51 Activated protein C resistance; Z00.00 Encounter for general adult medical examination without abnormal findings
CPT/HCPCS: 99395

== ENCOUNTER 2023-12-16 11:28 | Outpatient (REF) | payer OTHER, SELFPAY ==
[2023-12-16 13:03] LABS: Hematocrit 40.2 % (37.0-47.0); Hemoglobin 13.6 g/dl (12.0-16.0); Mean Corpuscular HGB Conc 33.8 g/dl (31.0-35.0); Mean Corpuscular Hemoglobin 29.1 pg (27.0-33.0); Mean Corpuscular Volume 85.9 fL (80.0-98.0); Mean Platelet Volume 11.2 fL (9.4-12.3); Platelet Count 221 X10*3/uL (160-400); Red Blood Count 4.68 X10*6/uL (4.20-5.50); Red Cell Distribution Width 13.1 % (11.0-16.0); White Blood Count 4.5 X10*3/uL (4.8-10.8)
[2023-12-16 13:20] LABS: Alanine Aminotransferase 18 U/L (0-31); Albumin Level 4.5 g/dL (3.5-5.0); Alkaline Phosphatase 49 U/L (39-117); Anion Gap 11 (12-20); Aspartate Amino Transferase 19 U/L (5-31); Bilirubin Direct 0.2 mg/dL (0.0-0.5); Bilirubin Total 0.6 mg/dL (0.0-1.0); Blood Urea Nitrogen 8 mg/dL (9-16); Calcium 9.3 mg/dL (8.4-10.2); Carbon Dioxide 28 mmol/L (22-29); Chloride 105 mmol/L (96-108); Estimated Glomerular Filt Rate > 60; Glucose Random 80 mg/dL (60-115); Potassium 3.5 mmol/L (3.3-5.1); Sodium 140 mmol/L (135-145); Total Protein 7.2 g/dL (6.5-8.0)
[2023-12-16 13:42] LABS: HCG Quantitative < 2 mIU/mL; Thyroid Stimulating Hormone 1.01 uIU/mL (0.32-4.0)
[2023-12-16 14:45] LABS: CT PCR NOT DETECTED (Not Detect.); NG PCR NOT DETECTED (Not Detect.)
== END 2023-12-16 11:29 | disposition home or self-care (01) ==
LOC: HO.LAB 11:28
PROVIDERS: PCP Internal Medicine; Visit Provider Internal Medicine
DX: R39.9 Unspecified symptoms and signs involving the genitourinary system (principal); Z20.2 Contact with and (suspected) exposure to infections with a predominantly sexual mode of transmission
CPT/HCPCS: 0353U; 80048; 80076; 84443; 84702; 85027

== ENCOUNTER 2024-08-17 08:51 | Outpatient (AMB) | payer OTHER, SELFPAY ==
--- NOTE | 2024-08-17 08:52 | A.OFFPC_ITS ---
Vital Signs 08/17/24 08:54 Height 5 ft 7 in Weight 163 lb 2 oz BMI 25.5 BP 140/60 H Blood Pressure Location Lt brachial Position Sitting Pulse 71 Pulse Source Pulse Oximeter Pulse Oximetry (%) 98 Oxygen Delivery Method Room Air Intake Visit Reasons: annual exam Intake Note: Patient is here today for a physical. Pt decline flu shot today. Brand Advocate Required: No Garnett Machine Operator: Not Required per policy Accompanied by: Self / Same As Patient Allergies No Known Allergies Allergy (Verified 08/17/24 09:16) Medication List - Last Reconciled 08/17/24 by Jay Oliveira MD No Known Home Meds Tobacco use date assessed: 08/17/24 Dental Screening Dental Screen Date: 12/16/23 HPI annual exam HPI Details 24 year old female presents to the [facility] requesting an annual physical. [facility] Medical History Factor 5 Leiden mutation, heterozygous Acne Surgical History History of eye surgery Hx of wisdom tooth extraction Family History Mother Factor 5 Leiden mutation, heterozygous Father Liver transplant recipient Alcoholic cirrhosis of liver Other Substance use disorder Social History Household Members: Family Housing: House Alcohol intake: current Alcohol intake frequency: a few times a month Patient Tobacco Use Status: Never used Tobacco Tobacco use type: Smokeless Tobacco e-Cigarette/Vaping Use: Currently Using Second Hand Smoke Exposure: No Substance Use Type: Marijuana service: No Current occupational status: employed Current occupation: [employer] Sexual orientation: Straight/Heterosexual Gender identity: Female Cognitive needs: No Hearing needs: No Vision needs: No Female Reproductive History Menstrual Age of Menarche: 15 Questionnaire PHQ-9 Over the last 2 weeks, how often have you been bothered by any of the following problems? 1. Little interest or pleasure in doing things: several days 2. Feeling down, depressed, or hopeless: several days 3. Trouble falling or staying asleep, or sleeping too much: several days 4. Feeling tired or having little energy: more than half the days 5. Poor appetite or overeating: not at all 6. Feeling bad about yourself - or that you are a failure or have let yourself or your family down: several days 7. Trouble concentrating on things, such as reading the newspaper or watching television: several days 8. Moving or speaking so slowly that other people could have noticed. Or the opposite - being so fidgety or restless that you have been moving around a lot more than usual: not at all 9. Thoughts that you would be better off or of hurting yourself in some w ay: not at all Total score: 7 Depression Screening Interpretation: Positive Depression Screening Done: Yes Source: Developed by Drs. Baldemar Loo, Kathleen Gray, Rashi Haney and colleagues, with an educational bella from [employer]. Thrive Questionnaire Date Thrive assessed: 08/17/24 I am a: Patient What is your living situation today?: I have a steady place to live Within the past 12 months, did the food you bought not last and you didn't have the money to get more?: Never true Within the past 12 months, did you worry whether your food would run out before you got money to buy more?: Never true Do you have trouble paying for medicines?: No Do you have trouble getting transportation to medical appointments?: No Do you have trouble paying your heating and electricity bill?: No Do you have trouble taking care of your child, family member or friend?: No Do you have trouble with day-to-day activities such as bathing, preparing meals, shopping, managing finances, etc.?: No Are you currently unemployed and looking for a job?: No Are you interested in more education?: No Please select the resources that you would like help with: None Currently or been in a relationship where the following occur: No concerns reported THRIVE Score: 0 AUDIT C Alcohol Use Questionnaire (AUDIT-C) 1. How often do you have a drink containing alcohol?: 2-4 times a month 2. How many drinks containing alcohol do you have on a typical day when you are drinking?: 5 or 6 3. How often do you have six or more drinks on one occasion?: Monthly Total Score: 6 MANDA-7 AMB Questionnaire MANDA-7 Date MANDA - 7 assessed: 12/16/23 Feeling nervous, anxious, or on edge: 1 = Several days Not being able to stop or control worryin = Several days Worrying too much about different things: 1 = Several days Trouble relaxin = Several days Being so restless that it is hard to sit still: 0 = Not at all Becoming easily annoyed or irritable: 1 = Several days Feeling afraid as if something awful might happen: 0 = Not at all Total MANDA-7 score (0-4 normal; 5-9 mild; 10-14 moderate; 15-21 severe): 5 Source: Developed by Drs. Baldemar Loo, Kathleen Gray, Rashi Haney and colleagues, with an educational bella from [employer]. Physical exam (Primary Care) Vital Signs: Last Vital Signs Pulse 71 08/17/24 08:54 BP 140/60 H 08/17/24 08:54 Pulse Ox 98 08/17/24 08:54 Oxygen Delivery Method Room Air 08/17/24 08:54 BMI result Body Mass Index 25.5 Tobacco/Smoking Status: Tobacco use Status Tobacco use date assessed 08/17/24 08/17/24 08:58 Patient Tobacco Use Status Never used Tobacco 08/17/24 08:58 Tobacco use type Smokeless Tobacco 08/17/24 08:58 e-Cigarette/Vaping Use Currently Using 08/17/24 08:58 PHQ-9: PHQ-9 Score PHQ-9: Total score 7 08/17/24 08:58 Depression Screening Interpretation: Positive Thrive Assessment: Date of Thrive Assessment Date Thrive assessed 08/17/24 08/17/24 08:58 Currently or been in a relationship where the following occur: No concerns reported Const General: cooperative and healthy appearing Nutritional Appearance: well nourished Orientation/consciousness: patient oriented x3 Limitations: no limitations HENMT Head: Yes normal to inspection Eyes General: appearance normal, both eyes and all related structures Neck Neck: Yes normal visual inspection Chest Chest palpation & inspection: normal palpation of entire chest wall Resp Effort & Inspection: normal respiratory effort Neuro General: patient oriented x3 Coding Level of Care Code Est Pt Prev Care 18-39y([id number]) Diagnoses Annual physical exam Z00.00 Assessment & Plan Assessment & Plan (1) Annual physical exam: Code(s): Z00.00 - Encounter for general adult medical examination without abnormal findings Plan: Rpt TSH ordered. Will call with the results. BP were checked during the physical 125/85 and 125/75 in each arm. Reassurance.
[2024-08-17 08:54] VITALS: BP 140/60; PULSE 71; O2SAT 98; BMI 25.5
== END 2024-08-17 09:14 | disposition home or self-care (01) ==
PROVIDERS: PCP Internal Medicine; Visit Provider Internal Medicine
DX: Z00.00 Encounter for general adult medical examination without abnormal findings (principal)

== ENCOUNTER → 2024-08-17 08:51 | Outpatient (BNVA) | payer OTHER, SELFPAY | PROVIDERS: PCP Internal Medicine; Visit Provider Internal Medicine | DX: Z00.00 Encounter for general adult medical examination without abnormal findings (principal) | CPT/HCPCS: 96127; 99395 ==

== ENCOUNTER 2024-10-19 12:55 | Outpatient (REF) | payer OTHER, SELFPAY ==
[2024-10-19 22:11] LABS: Bacterial Vaginosis PCR NEGATIVE (Negative); Candida Group PCR NOT DETECTED (Not Detect); Candida glab krusei PCR NOT DETECTED (Not Detect); Trichomonas vaginalis PCR NOT DETECTED (Not Detect)
[2024-10-19 22:41] LABS: CT PCR NOT DETECTED (Not Detect.); NG PCR NOT DETECTED (Not Detect.)
== END 2024-10-19 12:56 | disposition home or self-care (01) ==
LOC: HO.LAB 12:55
PROVIDERS: PCP Internal Medicine; Visit Provider Advanced Practice Midwife
DX: N89.8 Other specified noninflammatory disorders of vagina (principal); Z20.2 Contact with and (suspected) exposure to infections with a predominantly sexual mode of transmission; Z01.419 Encounter for gynecological examination (general) (routine) without abnormal findings; D68.51 Activated protein C resistance; Z11.3 Encounter for screening for infections with a predominantly sexual mode of transmission; N76.0 Acute vaginitis; B96.89 Other specified bacterial agents as the cause of diseases classified elsewhere
CPT/HCPCS: 81515; 87491; 87591; 99395; 99459

== ENCOUNTER 2024-10-19 12:55 | Outpatient (AMB) | payer OTHER, SELFPAY ==
[2024-10-19 13:12] VITALS: BP 112/60; BMI 26.0
--- NOTE | 2024-10-19 13:12 | MHC.OFFVIS ---
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 She is still using condoms for control she at 1st said she uses them under % but she did also report that she had a breakage recently for that she took plan B. she did not reported but she has spotting of reddish brownish discharge today which she attributed to have not taken the plan B. she reports that some months ago she had burning with urination frequency of urination and voided only small amounts and there was an odor to it and she was convinced she had a UTI and she called her primary was told to go to urgent care and they did a urine test and checked for BV and everything else but said that she did not have a UTI she did end up eventually because of returning for symptoms with being prescribed antibiotics for UTI and also she was also given antibiotics for bacterial vaginosis and she took been consecutively and did feel better afterwards. 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 Her 1st cousin age 40 was just recently diagnosed with breast cancer and she has had a mastectomy and it turns out the breast cancer stage I was in 11 places but it had not spread to lymph nodes. She does not know if her cousin has gotten screened for the BRCA gene yet. [facility] Medical History Factor 5 Leiden mutation, heterozygous Acne Surgical History History of eye surgery Hx of wisdom tooth extraction Family History (Updated 10/19/24 @ 13:21 by Julieta Cristobal CMA) Mother Factor 5 Leiden mutation, heterozygous Father Liver transplant recipient Alcoholic cirrhosis of liver Family/Other Breast cancer Family/Other Breast cancer Other Substance use disorder Social History Household Members: Family Housing: House Alcohol intake: current Alcohol intake frequency: a few times a month Patient Tobacco Use Status: Never used Tobacco Tobacco use type: Smokeless Tobacco e-Cigarette/Vaping Use: Currently Using Second Hand Smoke Exposure: No Substance Use Type: Marijuana service: No Current occupational status: employed 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 Sexual orientation: Straight/Heterosexual Gender identity: Female Cognitive needs: No Hearing needs: No Vision needs: No Female Reproductive History Menstrual Age of Menarche: 15 Duration of menses: 6-7 days Date of last menstrual period: 10/05/24 control method: none Total pregnancies: 0 Date of last pap smear: 06/04/23 (ASCUS) History of abnormal pap smear: Yes Physical Exam Vital Signs: Last Vital Signs BP 112/60 10/19/24 13:12 BMI result Body Mass Index 26.0 Const General: healthy appearing, comfortable, no acute distress, well developed and alert Nutritional Appearance: average body habitus Orientation/consciousness: patient oriented x3 Limitations: no limitations HEENT Head: Yes normocephalic Neck Neck: Yes normal visual inspection Chest Chest palpation & inspection: normal inspection of the chest Breast/axilla inspection: normal inspection of the breasts and normal inspection of the axillae Breast/axilla palpation: normal palpation of the breasts and normal palpation of the axillae Resp Effort & Inspection: normal respiratory effort GI Inspection: Yes normal to inspection, No Abdominal wall edema and No distended Palpation (GI): Soft to palpation and nontender Other: External exam within normal limits vagina pink moist with brown clotty end of period type blood. Cervix small pink tightly closed nulliparous. uterus small anteverted mobile nontender. adnexa nontender nonenlarged good tone w Kegel. General: Yes bladder normal to palpation External Female Exam: normal external appearance and normal appearance of the urethra Speculum Exam - Vagina: normal appearance of the vagina, normal palpation and normal vaginal discharge Speculum Exam - Cervix: normal appearance of the cervix, normal palpation and nontender Bimanual exam- vagina & uterus: normal bimanual exam, normal palpation, uterine size normal, bladder normal to palpation, consistency normal, normal palpation, uterine mobility normal, uterine shape normal, No Cervical tenderness present, non-tender and no cervical motion tenderness Bimanual Exam- Adnexa, other: normal adnexae, no masses, normal and No adnexal tenderness Neuro General: patient oriented x3 Results Reviewed Results Reviewed: sarah: Noreen Vargas Age/Sex: 23/F Attending: Jenn Munguia CNM : 2000 Submitted by: Jenn Munguia CNM Copies to: Tory Ragland MR #: [id number] Status: DEP REF Collected: 06/03/23 Location: [facility] Received: 06/04/23 Interpretation General Category: Epithelial cell abnormality. Adequacy: Endocervical component present. Interpretation: Atypical squamous cells of undetermined significance. HPV mRNA E6/E7: Not Detected This assay detects E6/E7 viral messenger RNA (mRNA) from 14 high-risk HPV types (16, 18, 31, 33, 35, 39, 45, 51, 52, 56, 58, 59, 66, 68) HPV testing performed by [facility], [place], [place]. See reference laboratory portion of the EMR for entire report. Clinical Information LMP:05/30/23 Previous PAP test:None Material Received ThinPrep-Cervical Copies To Tory Ragland [address] [place] [address] [email or web address] Jenn Munguia CNM [address] [place], [place] [address]Edmundo Jeffery [address] [place] [id number] Electronically Signed By: Shell Paiz 06/30/23 0827 The Pap Test is a screening procedure with the inherent possibility of both false negative and false positive results. Results should be interpreted in the context of historic and current clinical findings. Reliability of the Pap Test is enhanced by performing the test on a Patient: Noreen Vargas Age/Sex: 23/F MR#: [id number] Page 1 of 2 Gynecologic Cytology [id number] regular repetitive basis. Patient: Noreen Vargas Age/Sex: 23/F MR#: [id number] Assessment & Plan Assessment & Plan (1) Factor 5 Leiden mutation, heterozygous: Code(s): D68.51 - Activated protein C resistance Category: Medical (2) control counseling: Comment: She uses condoms and is aware with Plan B had recently just taken it recommend adding cycle and fertility awareness to her armamentarium Code(s): Z30.09 - Encounter for other general counseling and advice on contraception Category: Medical (3) Well woman exam with routine gynecological exam: Code(s): Z01.419 - Encounter for gynecological examination (general) (routine) without abnormal findings Category: Medical (4) Cervical cancer screening: Comment: First Pap 06/03/2023, has had Gardasil vaccine with Dr. Gonzalez at [facility]./05/14/2023 Pap is ASCUS with negative HPV., asccp recommends routine screening which means repeat in 3 years\. Seen for annual exam visit 10/19/2024. Offered patient opportunity to have Pap smear done today she accepted. Code(s): Z12.4 - Encounter for screening for malignant neoplasm of cervix Category: Medical (5) Screen for sexually transmitted diseases: Code(s): Z11.3 - Encounter for screening for infections with a predominantly sexual mode of transmission Category: Medical (6) Bacterial vaginosis: Comment: No current evidence testing done today discussed at length and offered prescription for Metrogel to use p.r.n. she already uses boric acid prn Code(s): N76.0 - Acute vaginitis; B96.89 - Other specified bacterial agents as the cause of diseases classified elsewhere Category: Medical Plan -----Discussed in this visit the following: healthy balanced diet, regular and consistent exercise, getting recommended health screens, doing the best she can for her particular health concerns, kegel exercises, pap smear screening and followup recommendations, mammography screening and SBE, normal changes in cycles in her life stage--- . Discussed her particular family and health concerns. She is avoiding hormonal methods because of her family gene mutation a factor 5. She is content with condom use and knows about plan B in uses it if she does have a condom breakage which she had.. Her recommend adding cycle awareness and awareness of fertility entered some teaching around the so that she has more in her armamentarium to help her avoid/time . Discussed issues about bacterial vaginosis at great length. ---Discussed the current research around the phenomena of bacterial vaginosis, and the many factors involved in the increase and change in the prevalence of certain bacteria in the vagina, that contribute to the clingy discharge, the fishy malodor, and the discomfort, that many women experience very frequently in their lives. Discussed the many factors that can promote it, and current thinking about best options for treatment of both the a 1 time episode, or frequently occurring episodes. Discussed the role of partner condom use. Discussed that previously, treatment was recommended for both partners, but is not currently recommended today in 2024. Discussed the testing involved. Discussed treatment options including Flagyl, metronidazole gel, boric acid capsules and others. Discussed also that it is probably over diagnosed at that is simply the presence of the bacteria that is most commonly associated with BV does not mean that is somebody has a syndrome BV with the above symptoms. Nevertheless I did offer her a prescription for Metrogel vaginal gel that she can use at her convenience. She is also aware of an uses boric acid capsules when she sees fit as well. Testing today done for gonorrhea chlamydia trichomoniasis Gardnerella and Cathi. Also reviewed her past symptomology for the urinary tract infection in great detail reviewed that it is possible that if there were multiple types of bacteria it would not been able to cultures single type of bacteria in the lab and therefore might of been read as negative (versus contaminated), Her symptomology did sound consistent with the UTI also discussed the issue of a urethritis that perhaps did not yield the high enough bacteria count to register as a positive urine culture. She is going to talk with her cousin to find out if she we will be getting the BRCA test in that can inform what she needs to do herself then for screening and testing if her cousin is BRCA positive can either she can let us know refer her to breast surgery for follow-up and discussion about best screening methodology for her and counseling about genetic testing or her primary care provider could do that as well. She declined blood work for STIs as not necessary today. Medications: New metronidazole 0.75%(37.5mg/5gram) 1 appful vaginal BID 5 days 70 grams 0RF Coding Level of Care Code Est Pt Prev Care 18-39y(94676) Diagnoses Factor 5 Leiden mutation, heterozygous D68.51 control counseling Z30.09 Well woman exam with routine gynecological exam Z01.419 Cervical cancer screening Z12.4 Screen for sexually transmitted diseases Z11.3 Bacterial vaginosis N76.0; B96.89
== END 2024-10-19 14:11 | disposition home or self-care (01) ==
PROVIDERS: PCP Internal Medicine; Visit Provider Advanced Practice Midwife
DX: Z01.419 Encounter for gynecological examination (general) (routine) without abnormal findings (principal); D68.51 Activated protein C resistance; N76.0 Acute vaginitis; B96.89 Other specified bacterial agents as the cause of diseases classified elsewhere
CPT/HCPCS: 99395; 99459

== ENCOUNTER 2024-10-25 09:08 | Outpatient (AMB) | payer OTHER, SELFPAY ==
--- NOTE | 2024-10-25 09:17 | MHC.OFFWIV ---
Intake Vital Signs 10/25/24 09:18 Weight 169 lb BP 108/64 Blood Pressure Location Rt brachial Position Sitting Pulse 88 Pulse Source Pulse Oximeter Temp 98.9 F Temp Source Oral Pulse Oximetry (%) 98 Oxygen Delivery Method Room Air Intake Visit Reasons: EP-?sinus infection Intake Note: Patient here for ?sinus infection, chest soreness, cough, right ear discomfort,sinus congestion,loss of taste and smell and headaches that has been present for about 10 days Patient Tobacco Use Status: Never used Tobacco Allergies No Known Allergies Allergy (Verified 10/25/24 09:20) Do you need a note to return to daycare/school/sports/work: No HPI HPI Comments History of Present Illness Details History - The patient is a 24-year-old female presenting with symptoms of a sinus infection, including severe nasal congestion, loss of taste and smell, and persistent coughing lasting ten days. - Notable for new symptoms of eye redness, crusting, and yellow-white discharge indicating possible acute bacterial conjunctivitis. - Chest discomfort without associated respiratory distress. - Absence of a history of asthma or recurrent sinus infections. - Symptom onset began with minor cough and congestion, increasing in severity over time, cough worse at night. - Temporary relief achieved with the use of Sudafed. Physical Exam General: Cooperative, healthy appearing, comfortable and no acute distress Orientation/consciousness: Patient oriented x3 Limitations: No limitations Head: Normal to inspection Ears: Hearing grossly normal bilaterally, external ears normal and TM's normal bilaterally, right ear slight erythema Nose: Normal external nose present, Normal nares present and No nasal discharge present Face and sinus: Normal facial exam and No sinuses nontender Mouth: Normal oral and palatal mucosa present and moist mucous membranes Throat: Yes tonsils normal, Yes uvula midline. Posterior oropharynx erythema Eyes: Appearance normal, no injection, no discharge noted Neck: Normal visual inspection Respiratory: Clear to auscultation bilaterally. Normal respiratory effort, able to speak in complete sentences, Actively coughing, no respiratory distress, not tachypneic, no tripod positioning and no use of accessory muscles Cardiovascular: Regular rate and rhythm. Normal S1 and S2 Skin: No rashes or lesions noted Neuro: Patient oriented x3 Extremities: Normal to inspection and Yes no clubbing, cyanosis or edema [facility] Medical History Factor 5 Leiden mutation, heterozygous Acne Surgical History History of eye surgery Hx of wisdom tooth extraction Family History (Updated 10/19/24 @ 13:21 by Julieta Cristobal CMA) Mother Factor 5 Leiden mutation, heterozygous Father Liver transplant recipient Alcoholic cirrhosis of liver Family/Other Breast cancer Family/Other Breast cancer Other Substance use disorder Social History Household Members: Family Housing: House Alcohol intake: current Alcohol intake frequency: a few times a month Patient Tobacco Use Status: Never used Tobacco Tobacco use type: Smokeless Tobacco e-Cigarette/Vaping Use: Currently Using Second Hand Smoke Exposure: No Substance Use Type: Marijuana service: No Current occupational status: employed 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 Sexual orientation: Straight/Heterosexual Gender identity: Female Cognitive needs: No Hearing needs: No Vision needs: No Female Reproductive History Menstrual Age of Menarche: 15 Review of Systems Const All systems reviewed & are unremarkable except as noted in HPI and below Physical Exam Vital Signs: Last Vital Signs Temp 98.9 F 10/25/24 09:18 Pulse 88 10/25/24 09:18 BP 108/64 10/25/24 09:18 Pulse Ox 95 10/25/24 09:18 Oxygen Delivery Method Room Air 10/25/24 09:18 Assessment & Plan Assessment & Plan (1) URI, acute: Code(s): J06.9 - Acute upper respiratory infection, unspecified Plan: Treatment plan includes initiation of azithromycin Z-pack targeting both sinus infection and atypical pneumonia, complemented by benzonatate for nighttime cough suppression. Diagnostic tests for influenza, COVID-19, and RSV are performed to identify the causative agent. The primary management approach is aimed at addressing both upper respiratory symptoms and conjunctivitis with a broad-spectrum antibiotic, while supporting symptomatic relief through decongestants like Sudafed, given its prior effectiveness. Recommendations focus on symptomatic management while monitoring for improvement and confirmation of initial infection testing. Work note declined. Patient was informed and verbally consented to the use of an ambient scribe for clinic note documentation during this visit Orders: Orders SARS-CoV2/FLU/RSV Today R09.89 - Other specified symptoms and signs involving the circulatory and respiratory systems Medications: New benzonatate 200 mg PO TID PRN 14 caps 0RF cough azithromycin For 250 mg dose pack: take 500 mg today (day 1), then 250 mg for 4 days (days 2-5) PO 6 tabs 0RF Coding Level of Care Code Est Pt Level 4 (30878) Diagnoses URI, acute J06.9
[2024-10-25 09:18] VITALS: BP 108/64; PULSE 88; TEMP 37.2; O2SAT 98
== END 2024-10-25 10:32 | disposition home or self-care (01) ==
PROVIDERS: PCP Internal Medicine; Visit Provider Physician Assistant
DX: J06.9 Acute upper respiratory infection, unspecified (principal)

== ENCOUNTER 2024-10-25 09:08 | Outpatient (REF) | payer OTHER, SELFPAY ==
[2024-10-25 13:42] LABS: Influenza A PCR NEGATIVE (Negative); Influenza B PCR NEGATIVE (Negative); Resp Syncy Virus RNA Qual PCR NEGATIVE (Negative); SARS COV2 PCR INHOUSE POSITIVE (Negative)
== END 2024-10-25 09:09 | disposition home or self-care (01) ==
LOC: HO.LAB 09:08
PROVIDERS: PCP Internal Medicine; Visit Provider Physician Assistant
DX: J06.9 Acute upper respiratory infection, unspecified (principal); R09.89 Other specified symptoms and signs involving the circulatory and respiratory systems
CPT/HCPCS: 0241U; 99212

== ENCOUNTER 2025-01-26 10:08 | Outpatient (REF) | payer OTHER, SELFPAY ==
--- OUTSIDE RECORDS SUMMARY | 2025-01-26 11:46 | XMS_ITS | Clinical Summary ---
Author Organization [facility] Address [address] [place] [address] Phone Care Team Providers Care Group Segment Consultant Name Role Phone Unavailable Primary Care Provider Unavailabl e Allergies No known active allergies Medications No known medications Active Problems Problem Noted Date Diagnosed Date Personal history of COVID-19 12/26/2021 Overview (12/26/2021): 10/2021 Assessment & Plan (12/26/2021 9:17 AM EDT): 10/2021 - mild illness Had already had 2 covid vaccines but was due for Booster Nicotine vapor product user 12/26/2021 Overview (12/26/2021): 12/26/2021 : Discussed ways to work on quitting. Offered referral to [facility] program but declined at this time. Reading disorder 08/31/2018 Overview (12/20/2020): Had IEP for Math & reading while in school Assessment & Plan (12/20/2020 10:09 AM EDT): Graduated HS Now in College - no supports Assessment & Plan (09/06/2019 2:47 PM EST): Very few supports in school. Doing well Allergic rhinitis Assessment & Plan (12/20/2020 10:10 AM EDT): No issues No meds Assessment & Plan (09/06/2019 2:47 PM EST): No issues No meds Factor 5 Leiden mutation, heterozygous Overview (08/31/2018): Factor 5 Leiden defic - heterozygous. Seen by Leodan 2010. At increased risk for clot. Avoid estrogen containing OCPs Assessment & Plan (12/20/2020 10:09 AM EDT): Rigobertoi Flexographic Press Set Up Operator says that Noreen can get Covid 19 vaccine when available to her. This is supported by Statement from International Society of Thrombosis & Hemostasis (12/15/20) Assessment & Plan (09/06/2019 2:47 PM EST): Needs to avoid estrogen containing OCPs Dyslexia Immunizations Immunization Administration Dates Next Due COVID-19 Pfizer, monovalent, 12+ years 1,01/04/2021 COVID-19 Pfizer, cresencio-sucros e, 12+ years 12/26/2021 DTaP 5 01/22/2007, 3,2002,05/18,2002 H1N1 10/26/2009,08/02/2009 HPV, Quadrivalent 01/05/2014,08/05/2013,05/31/20 13 Hep A, ped/adol 08/16/2015,08/11/2014 Hep B, ped/adol 2002,2002,2002 Hib (PRP-T) 04/29/2003, 2,2002,03/12 IPV 01/22/2007, 3,2002,03/12 Influenza Split 07/10/2011 Influenza, injectable, quadrivalent 08/16/2015,1 10/11/2013 Influenza, injectable, quadr ivalent, preservative free 12/20/2020,09/06/2019,09/01/2018 Influenza, injectable, trivalent 09/03/2005,08/06 Influenza, intranasal, quadrivalent 05/31/2013 Influenza, intranasal, trivalent 08/26/2012,07/07 MMR 01/24/2006,01/28/2003 Meningococcal B Trumenba 12/20/2020 Meningococcal Conj (Menactra) MCV4P 09/06/2019,0 05/31/2013 Pneumococcal Conjugate 08/02/2003,2001,2002,03/12 Tdap 05/31/2013 Varicella 01/22/2007,01/28/2003 Family History Medical History Relation Name Comments No Known Problems Brother Jose No Known Problems Father Deven Factor V Leiden deficiency Mother Deneen Obesity Mother Deneen Stroke Mother's Sister No Known Problems Sister Alicia Relation Name Status Comments Brother Jose Alive Father Deven Alive Father: Alive a nd well Maternal Grandmother Materna l aunt: Factor 5 Leiyden Mother Deneen Alive Mother: factor 5, Obesity Mother's Sister Alive Sister Alicia Alive Social History Tobacco Use Types Packs/Day Years Used Date Smoking Tobacco: Never Smokeless Tobacco: Never Comments:Never smoker Alcohol Use Standard Drinks/Week Comments No 0 (1 standard drink = 0.6 oz pur e alcohol) Hunger/Food Answer Date Recorded In the last 12 months, did y ou or your family ever eat less than you felt you should because there wasn't enough money for food? No 12/26/2021 Stable Housing Answer Date Recorded Are you worried that in the next 2 months you may not have stable housing? No 12/26/2021 Transportation Concerns Answer Date Rec orded In the last 12 months, have you or your family ever had to go without healthcare because you didn't have a way to get there? No 12/26/2021 Hazards in Home Answer Date Recorded Think about the place you li ve. Do you have problems with any of the following? Pests (mice or roaches), mold, no/not working smoke detectors, water leaks, no window guards. No 2021 Financing Utilities Answer Date Recorde d In the last 12 months, has t he electric, gas, oil, or water company threatened to shut off your services in your home? No 12/26/2021 Safety at Home Answer Date Recorded Are you or your family worried about feeling saf e in your home? No 12/26/2021 Outside Support Answer Date Recorded Do you feel that you need mo re support from other people or programs to help you care for yourself or your family? No 12/26/2021 Understanding Health Concerns Answer Da te Recorded Do you need help understandi ng your or your child's healthcare needs (diagnosis, medications, plan, etc.)? No 12/26/2021 Financing Health Concerns Answer Date R ecorded In the last 12 months, was t here a time when your child needed to see a doctor or get medications or supplies but could not because of cost? No 12/26/2021 Missing School or Work Answer Date Josef rded Did you or your child miss s chool or work because of a health problem that could have been avoided? No 12/26/2021 Comments No Sex and Gender Information Value Date Recorded Sex Assigned at Not on file Legal Sex Female 5:00 PM EDT Gender Identity Not on file Sexual Orientation Straight 09/06/2019 2: 52 PM EST Last Filed Vital Signs Vital Sign Reading Time Taken Comments Blood Pressure 117/71 12/26/2021 9:09 AM EDT Pulse 75 12/26/2021 9:09 AM EDT Temperature 36.1 ??C (96.9 ??F) 12/26/2021 9:09 AM ED T Respiratory Rate - - Oxygen Saturation - - Inhaled Oxygen Concentration - - Weight 69.9 kg (154 lb) 12/26/2021 9:09 AM EDT Height 167.6 cm (5' 6 ) 12/26/2021 9:09 AM EDT Body Mass Index 24.86 12/26/2021 9:09 AM EDT Plan of Treatment Health Maintenance Due Date Last Done Comments Men B Vaccine (2 of 2 - Trum enba SCDM 2-dose series) 06/22/2021 12/20/2020 DTaP,Tdap,and Td Vaccines (7 - Td or Tdap) 05/31/2023 05/31/2013, 01/22/2007, 08/02/2003, Additional history exists Influenza Vaccines (#1) 2024 12/21/19, 09/06/2019, 09/01/2018, Additional history exists COVID-19 Vaccine (2023-2 5 season) 2024 12/26/2021, 01/25/2021, 01/04/2021 Hepatitis B Vaccines Completed 2002, 2002, 2002 HIB Vaccines Completed 04/29/2003, 07/07, 2002, Additional history exists Pneumococcal Vaccine Completed 08/02/2003, 2002, 2002, Additional history exists MMR Vaccines Completed 01/24/2006, 01/28/2003 IPV Vaccines Completed 01/22/2007, 11/06, 2002, Additional history exists Varicella Vaccines Completed 01/22/2007, 01/28/2003 HPV Vaccines Completed 01/05/2014, 07/08, 05/31/2013 Hepatitis A Vaccines Completed 08/16/2015, 08/11/20 14 Meningococcal Vaccine Completed 09/06/2019, 013 Procedures * Due to [place] [employer] law, this organization might not be sharing sensitive test results. Procedure Name Priority Date/Time Associated Diagnosis Comments CHLAMYDIA AND GONORRHEA, AMPLIFIED Routine 12/26/2021 9:20 AM EDT Encounter for screening examination for sexually transmitted disease from Last 3 Months or Most Recently Relevant to Health Maintenance Results * Due to [place] [employer] law, this organization might not be sharing sensitive test results. * Chlamydia and Gonorrhoea, Amplified (12/26/2021 9:20 AM EDT) Chlamydia Trachomatis, DNA Probe NEGATIVE (NEG) [facility] Comment: No Chlamydia Trachomatis RNA detected in this patient's sample ? (REFERENCE RANGE/NORMAL VALUE: NOT DETECTED) ? Note: This test uses tent finisher- mediated amplification method to detect rRNA from C. Trachomatis URINE GC AMP PROBE NEGATIVE (NEG) [facility] Comment: No Neisseria Gonorrhoeae RNA detected in this patient's sample ? (REFERENCE RANGE/NORMAL VALUE: NOT DETECTED) ? NOTE: This test uses tent finisher-mediated amplification method to detect rRNA from N.Gonorrhoeae. A negative result does not preclude infection. In the case of a negative urine result, testing of an endocervical(female) or urethral (male) specimen is recommended if there is high clinical suspicion of infection. Due to very high sensitivity of Nucleic Acid Amplification Test, false positive results may occur. Therefore, specimen handling is extremely important. In patients in whom the disease is unlikely, additional sample for testing should be considered after an initial positive result. The performance characteristics of this test have not been evaluated in children. The Aptima Combo2 assay is not intended for the evaluation of suspected sexual abuse or for other medico-legal indications. The ordering provider should assess if the patient had consensual sex without risk of sexual abuse. Consult the [facility] if needed. Contact phone number . Therapeutic failure or success cannot be determined with the Aptima Combo2 assay since nucleic acid may persist following appropriate antimicrobial therapy. The Centers for Disease Control and Prevention (CDC) recommends confirmatory retesting using culture or a different nucleic acid amplification test when positive results occur, if indicated. Testing performed or reported by [facility], a Service of [facility], [address] [place] [address] Jonathan Mobley MD, Car Lot Attendant [facility]# [id number] Urine (Urine) 12/26/2021 9:2 0 AM EDT 12/26/2021 6:21 PM EDT us Alma Gonzalez MD LAB MICROBIOLOGY - GENERAL ORDER SHERMAN Final Result [facility] from Last 3 Months or Most Recently Relevant to Health Maintenance
--- OUTSIDE RECORDS SUMMARY | 2025-01-26 11:46 | XMS_ITS | Encounter Summary ---
Author Organization [facility] Address [address] [place] [address] Phone Care Team Providers Care Lapping Machine Tender Name Role Phone Alma Gonzalez MD Primary Care Provider [phone] Encounter Details Date Type Department Care Team (Late st Contact Info) Description 11/16/2015 Documentation [facility] [place] Family Medicine [address] [place] [address] Family Medicine, Physician [address] [place], [place] 809781 Social History Tobacco Use Types Packs/Day Years Used Date Smoking Tobacco: Never Assessed Comments Unknown Sex and Gender Information Value Date Recorded Sex Assigned at Not on file Legal Sex Female 5:00 PM EDT Gender Identity Not on file Sexual Orientation Straight 09/06/2019 2: 52 PM EST documented as of this encounter Plan of Treatment Not on file documented as of this encounter Visit Diagnoses Not on filedocumented in this encounter Care Teams Lapping Machine Tender Relationship Specialty Start Date End Date Alma Gonzalez MD [address] [place] [address] [place] [address] PCP - General 05/16/17 05/12/23 documented as of this encounter
--- OUTSIDE RECORDS SUMMARY | 2025-01-26 11:46 | XMS_ITS | Encounter Summary ---
Author Organization [facility] Address [address] [place] [address] Phone Care Team Providers Care Applications Developer Name Role Phone Alma Gonzalez MD Primary Care Provider [phone] Encounter Details Date Type Department Care Team (Late st Contact Info) Description 08/12/2014 Documentation [facility] [place] Family Medicine [address] [place] [address] Family Medicine, Physician [address] [place], [place] [address]361 Social History Tobacco Use Types Packs/Day Years [...] on filedocumented in this encounter Care Teams Applications Developer Relationship Specialty Start Date End Date Alma Gonzalez MD [address] [place] [address] [place] [address] PCP - General 05/16/17 05/12/23 documented as of this encounter
--- OUTSIDE RECORDS SUMMARY | 2025-01-26 11:46 | XMS_ITS | Encounter Summary ---
Author Organization [facility] Address [address] [place] [address] Phone Care Team Providers Care Professor Of Mechanical Engineering Name Role Phone Alma Gonzalez MD Primary Care Provider [phone] Encounter Details Date Type Department Care Team (Late st Contact Info) Description 04/26/2011 Documentation [facility] [place] [address] [place] [address] Family Medicine, Physician [address] [place], [place] 548941 Social History Tobacco Use Types Packs/Day Years [...] on filedocumented in this encounter Care Teams Professor Of Mechanical Engineering Relationship Specialty Start Date End Date Alma Gonzalez MD [address] [place] [address] [place] [address] PCP - General 05/16/17 05/12/23 documented as of this encounter
--- OUTSIDE RECORDS SUMMARY | 2025-01-26 11:46 | XMS_ITS | Encounter Summary ---
Author Organization [facility] Address [address] [place] [address] Phone Care Team Providers Care Hosiery Looper Name Role Phone Alma Gonzalez MD Primary Care Provider [phone] Encounter Details Date Type Department Care Team (Late st Contact Info) Description 08/23/2016 Documentation [facility] [place] Family Medicine [address] [place] [address] Family Medicine, Physician [address] [place], [place] 856011 Social History Tobacco Use Types Packs/Day Years Used Date Smoking Tobacco: Never Comments:Never smoker Comments Unknown Sex and Gender Information Value Date Recorded Sex Assigned at Not on file Legal Sex Female 5:00 PM EDT Gender Identity Not on file Sexual Orientation Straight 09/06/2019 2: 52 PM EST documented as of this encounter Plan of Treatment Not on file documented as of this encounter Visit Diagnoses Not on filedocumented in this encounter Care Teams Hosiery Looper Relationship Specialty Start Date End Date Alma Gonzalez MD [address] [place] [address] [place] [address] PCP - General 05/16/17 05/12/23 documented as of this encounter
--- OUTSIDE RECORDS SUMMARY | 2025-01-26 11:46 | XMS_ITS | Encounter Summary ---
Author Organization [facility] Address [address] [place] [address] Phone Care Team Providers Care Roving Can Tender Name Role Phone Alma Gonzalez MD Primary Care Provider [phone] Encounter Details Date Type Department Care Team (Late st Contact Info) Description 06/01/2013 Documentation [facility] [place] Family Medicine [address] [place] [address] Family Medicine, Physician [address] [place], [place] 807211 Social History Tobacco Use Types Packs/Day Years [...] on filedocumented in this encounter Care Teams Roving Can Tender Relationship Specialty Start Date End Date Alma Gonzalez MD [address] [place] [address] [place] [address] PCP - General 05/16/17 05/12/23 documented as of this encounter
--- OUTSIDE RECORDS SUMMARY | 2025-01-26 11:46 | XMS_ITS | Encounter Summary ---
Author Organization [facility] Address [address] [place] [address] Phone Care Team Providers Care Picture Framer Name Role Phone Alma Gonzalez MD Primary Care Provider [phone] Encounter Details Date Type Department Care Team (Late st Contact Info) Description 08/31/2012 Documentation [facility] [place] [address] [place] [address] Family Medicine, Physician [address] [place], [place] [address] Social History Tobacco Use Types Packs/Day Years [...] on filedocumented in this encounter Care Teams Picture Framer Relationship Specialty Start Date End Date Alma Gonzalez MD [address] [place] [address] [place] [address] PCP - General 05/16/17 05/12/23 documented as of this encounter
--- OUTSIDE RECORDS SUMMARY | 2025-01-26 11:46 | XMS_ITS | Encounter Summary ---
Author Organization [facility] Address [address] [place] [address] Phone Care Team Providers Care Sales Representative Leather Goods Name Role Phone Alma Gonzalez MD Primary Care Provider [phone] Encounter Details Date Type Department Care Team (Late st Contact Info) Description 06/01/2013 Documentation [facility] [place] Family Medicine [address] [place] [address] Family Medicine, Physician [address] [place], [place] 257691 Social History Tobacco Use Types Packs/Day Years [...] on filedocumented in this encounter Care Teams Sales Representative Leather Goods Relationship Specialty Start Date End Date Alma Gonzalez MD [address] [place] [address] [place] [address] PCP - General 05/16/17 05/12/23 documented as of this encounter
--- OUTSIDE RECORDS SUMMARY | 2025-01-26 11:46 | XMS_ITS | Encounter Summary ---
Author Organization [facility] Address [address] [place] [address] Phone Care Team Providers Care Barback Name Role Phone Alma Gonzalez MD Primary Care Provider [phone] Encounter Details Date Type Department Care Team (Late st Contact Info) Description 05/14/2012 Documentation [facility] [place] Family Medicine [address] [place] [address] Family Medicine, Physician [address] [place], [place] 067301 Social History Tobacco Use Types Packs/Day Years [...] on filedocumented in this encounter Care Teams Barback Relationship Specialty Start Date End Date Alma Gonzalez MD [address] [place] [address] [place] [address] PCP - General 05/16/17 05/12/23 documented as of this encounter
--- OUTSIDE RECORDS SUMMARY | 2025-01-26 11:46 | XMS_ITS | Encounter Summary ---
Author Organization [facility] Address [address] [place] [address] Phone Care Team Providers Care Cementer Oil Well Name Role Phone Alma Gonzalez MD Primary Care Provider [phone] Encounter Details Date Type Department Care Team (Late st Contact Info) Description 08/22/2016 Documentation [facility] [place] Family [place] [address] [place] [address] Family Medicine, Physician [address] [place], [place] 812081 Social History Tobacco Use Types Packs/Day Years [...] on filedocumented in this encounter Care Teams Cementer Oil Well Relationship Specialty Start Date End Date Alma Gonzalez MD [address] [place] [address] [place] [address] PCP - General 05/16/17 05/12/23 documented as of this encounter
--- OUTSIDE RECORDS SUMMARY | 2025-01-26 11:46 | XMS_ITS | Encounter Summary ---
Author Organization [facility] Address [address] [place] [address] Phone Care Team Providers Care Teletypewriter Operator Name Role Phone Alam Gonzalez MD Primary Care Provider [phone] Encounter Details Date Type Department Care Team (Late st Contact Info) Description 08/06/2013 Documentation [facility] [place] [address] [place] [address] Family Medicine, Physician [address] [place], [place] 064321 Social History Tobacco Use Types Packs/Day Years [...] on filedocumented in this encounter Care Teams Teletypewriter Operator Relationship Specialty Start Date End Date Alma Gonzalez MD [address] [place] [address] [place] [address] PCP - General 05/16/17 05/12/23 documented as of this encounter
--- OUTSIDE RECORDS SUMMARY | 2025-01-26 11:46 | XMS_ITS | Encounter Summary ---
Author Organization [facility] Address [address] [place] [address] Phone Care Team Providers Care Guest Services Coordinator Name Role Phone Alma Gonzalez MD Primary Care Provider [phone] Encounter Details Date Type Department Care Team (Late st Contact Info) Description 08/06/2013 Documentation [facility] [place] [address] [place] [address] Family Medicine, Physician [address] [place], [place] 749691 Social History Tobacco Use Types Packs/Day Years [...] on filedocumented in this encounter Care Teams Guest Services Coordinator Relationship Specialty Start Date End Date Alma Gonzalez MD [address] [place] [address] [place] [address] PCP - General 05/16/17 05/12/23 documented as of this encounter
--- OUTSIDE RECORDS SUMMARY | 2025-01-26 11:46 | XMS_ITS | Encounter Summary ---
Author Organization [facility] Address [address] [place] [address] Phone Care Team Providers Care Graining Press Operator Name Role Phone Alma Gonzalez MD Primary Care Provider Encounter Details Date Type Department Care Team (Late st Contact Info) Description 09/01/2012 Documentation [facility] [place] Family [place] [address] [place] [address] Family Medicine, Physician [address] [place], [place] 757471 Social History Tobacco Use Types Packs/Day Years [...] on filedocumented in this encounter Care Teams Graining Press Operator Relationship Specialty Start Date End Date Alma Gonzalez MD [address] [place] [address] [place] [address] PCP - General 05/16/17 05/12/23 documented as of this encounter
--- OUTSIDE RECORDS SUMMARY | 2025-01-26 11:46 | XMS_ITS | Encounter Summary ---
Author Organization [facility] Address [address] [place] [address] Phone Care Team Providers Care Pocket And Pulley Machine Operator Name Role Phone Alma Gonzalez MD Primary Care Provider [phone] Encounter Details Date Type Department Care Team (Late st Contact Info) Description 05/22/2017 Conversion Encounter [facility] [address] [place] [address] Social History Tobacco Use Types Packs/Day Years [...] on filedocumented in this encounter Care Teams Pocket And Pulley Machine Operator Relationship Specialty Start Date End Date Alma Gonzalez MD [address] [place] [address] PCP - General 05/16/17 05/12/23 documented as of this encounter
--- OUTSIDE RECORDS SUMMARY | 2025-01-26 11:46 | XMS_ITS | Encounter Summary ---
Author Organization [facility] Address [address] [place] [address] Phone Care Team Providers Care Block Handler Name Role Phone Alma Gonzalez MD Primary Care Provider [phone] Encounter Details Date Type Department Care Team (Late st Contact Info) Description 08/12/2014 Documentation [facility] [place] [address] [place] [address] Family Medicine, Physician [address] [place], [place] 793291 Social History Tobacco Use Types Packs/Day Years [...] on filedocumented in this encounter Care Teams Block Handler Relationship Specialty Start Date End Date Alma Gonzalez MD [address] [place] [address] [place] [address] PCP - General 05/16/17 05/12/23 documented as of this encounter
--- OUTSIDE RECORDS SUMMARY | 2025-01-26 11:46 | XMS_ITS | Encounter Summary ---
Author Organization [facility] Address [address] [place] [address] Phone Care Team Providers Care Signaling Design Engineer Name Role Phone Alma Gonzalez MD Primary Care Provider [phone] Encounter Details Date Type Department Care Team (Late st Contact Info) Description 01/06/2014 Documentation [facility] [place] [address] [place] [address] Family Medicine, Physician [address] [place], [place] 9665[address] Social History Tobacco Use Types Packs/Day Years [...] on filedocumented in this encounter Care Teams Signaling Design Engineer Relationship Specialty Start Date End Date Alma Gonzalez MD [address] [place] [address] [place] [address] PCP - General 05/16/17 05/12/23 documented as of this encounter
--- OUTSIDE RECORDS SUMMARY | 2025-01-26 11:46 | XMS_ITS | Encounter Summary ---
Author Organization [facility] Address [address] [place] [address] Phone Care Team Providers Care Nurse Clinical Name Role Phone Alma Gonzalez MD Primary Care Provider [phone] Encounter Details Date Type Department Care Team (Late st Contact Info) Description 01/06/2014 Documentation [facility] [place] [address] [place] [address] Family Medicine, Physician [address] [place], [place] 842481 Social History Tobacco Use Types Packs/Day Years [...] on filedocumented in this encounter Care Teams Nurse Clinical Relationship Specialty Start Date End Date Alma Gonzalez MD [address] [place] [address] [place] [address] PCP - General 05/16/17 05/12/23 documented as of this encounter
--- OUTSIDE RECORDS SUMMARY | 2025-01-26 11:46 | XMS_ITS | Encounter Summary ---
Author Organization [facility] Address [address] [place] [address] Phone Care Team Providers Care Two Way Radio Technician Name Role Phone Alma Gonzalez MD Primary Care Provider [phone] Encounter Details Date Type Department Care Team (Late st Contact Info) Description 08/23/2016 Documentation [facility] [place] [address] [place] [address] Family Medicine, Physician [address] [place], [place] 724581 Social History Tobacco Use Types Packs/Day Years [...] on filedocumented in this encounter Care Teams Two Way Radio Technician Relationship Specialty Start Date End Date Alma Gonzalez MD [address] [place] [address] [place] [address] PCP - General 05/16/17 05/12/23 documented as of this encounter
--- OUTSIDE RECORDS SUMMARY | 2025-01-26 11:46 | XMS_ITS | Encounter Summary ---
Author Organization [facility] Address [address] [place] [address] Phone Care Team Providers Care Supervisor Steel Division Name Role Phone Alma Gonzalez MD Primary Care Provider [phone] Encounter Details Date Type Department Care Team (Late st Contact Info) Description 05/14/2012 Documentation [facility] [place] [address] [place] [address] Family Medicine, Physician [address] [place], [place] 303241 Social History Tobacco Use Types Packs/Day Years [...] on filedocumented in this encounter Care Teams Supervisor Steel Division Relationship Specialty Start Date End Date Alma Gonzalez MD [address] [place] [address] [place] [address] PCP - General 05/16/17 05/12/23 documented as of this encounter
--- OUTSIDE RECORDS SUMMARY | 2025-01-26 11:46 | XMS_ITS | Encounter Summary ---
Author Organization [facility] Address [address] [place] [address] Phone Care Team Providers Care Bill Clerk Name Role Phone Alma Gonzalez MD Primary Care Provider [phone] Encounter Details Date Type Department Care Team (Late st Contact Info) Description 06/01/2013 Documentation [facility] [place] [address] [place] [address] Family Medicine, Physician [address] [place], [place] 720871 Social History Tobacco Use Types Packs/Day Years [...] on filedocumented in this encounter Care Teams Bill Clerk Relationship Specialty Start Date End Date Alma Gonzalez MD [address] [place] [address] [place] [address] PCP - General 05/16/17 05/12/23 documented as of this encounter
--- OUTSIDE RECORDS SUMMARY | 2025-01-26 11:46 | XMS_ITS | Encounter Summary ---
Author Organization [facility] Address [address] [place] [address]276 Phone Care Team Providers Care Truck Crane Operator Name Role Phone Alma Gonzalez MD Primary Care Provider [phone] Encounter Details Date Type Department Care Team (Late st Contact Info) Description 04/19/2011 Documentation [facility] [place] [address] [place] [address] Family Medicine, Physician [address] [place], [place] 356701 Social History Tobacco Use Types Packs/Day Years [...] on filedocumented in this encounter Care Teams Truck Crane Operator Relationship Specialty Start Date End Date Alma Gonzalez MD [address] [place] [address] [place] [address] PCP - General 05/16/17 05/12/23 documented as of this encounter
--- OUTSIDE RECORDS SUMMARY | 2025-01-26 11:47 | XMS_ITS | Encounter Summary ---
Author Organization [facility] Address [address] [place] [address] Phone Care Team Providers Care Pocket Assembler Name Role Phone Alma Gonzalez MD Primary Care Provider [phone] Encounter Details Date Type Department Care Team (Late st Contact Info) Description 08/17/2015 Documentation [facility] [place] [address] [place] [address] Family Medicine, Physician [address] [place], [place] 385401 Social History Tobacco Use Types Packs/Day Years [...] filedocumented in this encounter Care Teams Pocket Assembler Relationship Specialty Start Date End Date Alma Gonzalez MD [address] [place] [address] [place] [address] PCP - General 05/16/17 05/12/23 documented as of this encounter
--- OUTSIDE RECORDS SUMMARY | 2025-01-26 11:47 | XMS_ITS | Encounter Summary ---
Author Organization [facility] Address [address] [place] [address] Phone Care Team Providers Care Editor Farm Journal Name Role Phone Alma Gonzalez MD Primary Care Provider [phone] Encounter Details Date Type Department Care Team (Late st Contact Info) Description 04/26/2011 Documentation [facility] [place] [address] [place] [address] Family Medicine, Physician [address] [place], [place] 611451 Social History Tobacco Use Types Packs/Day Years [...] on filedocumented in this encounter Care Teams Editor Farm Journal Relationship Specialty Start Date End Date Alma Gonzalez MD [address] [place] [address] [place] [address] PCP - General 05/16/17 05/12/23 documented as of this encounter
--- OUTSIDE RECORDS SUMMARY | 2025-01-26 11:47 | XMS_ITS | Encounter Summary ---
Author Organization [facility] Address [address] [place] [address] Phone Care Team Providers Care Sem Manager Name Role Phone Alma Gonzalez MD Primary Care Provider [phone] Encounter Details Date Type Department Care Team (Late st Contact Info) Description 04/26/2011 Documentation [facility] Family Medicine [address] [place] [address] Family Medicine, Physician [address] [place], [place] 683921 Social History Tobacco Use Types Packs/Day Years [...] on filedocumented in this encounter Care Teams Sem Manager Relationship Specialty Start Date End Date Alma Gonzalez MD [address] [place] [address] [place] [address] PCP - General 05/16/17 05/12/23 documented as of this encounter
--- OUTSIDE RECORDS SUMMARY | 2025-01-26 11:47 | XMS_ITS | Encounter Summary ---
Author Organization [facility] Address [address] [place] [address] Phone Care Team Providers Care Tan Room Supervisor Name Role Phone Alma Gonzalez MD Primary Care Provider [phone] Encounter Details Date Type Department Care Team (Late st Contact Info) Description 08/17/2015 Documentation [facility] [place] Medicine [address] [place] [address] Family Medicine, Physician [address] [place], [place] 946951 Social History Tobacco Use Types Packs/Day Years [...] on filedocumented in this encounter Care Teams Tan Room Supervisor Relationship Specialty Start Date End Date Alma Gonzalez MD [address] [place] [address] [place] [address] PCP - General 05/16/17 05/12/23 documented as of this encounter
--- OUTSIDE RECORDS SUMMARY | 2025-01-26 11:47 | XMS_ITS | Encounter Summary ---
Author Organization [facility] Address [address] [place] [address] Phone Care Team Providers Care Felt Cutting Machine Operator Name Role Phone Alma Gonzalez MD Primary Care Provider [phone] Encounter Details Date Type Department Care Team (Late st Contact Info) Description 07/17/2011 Document[place] [facility] [place] [address] [place] [address] Family Medicine, Physician [address] [place], [place] 234601 Social History Tobacco Use Types Packs/Day Years [...] on filedocumented in this encounter Care Teams Felt Cutting Machine Operator Relationship Specialty Start Date End Date Alma Gonzalez MD [address] [place] [address] [place] [address] PCP - General 05/16/17 05/12/23 documented as of this encounter
--- OUTSIDE RECORDS SUMMARY | 2025-01-26 11:47 | XMS_ITS | Encounter Summary ---
Author Organization [facility] Address [address] [place] [address] Phone Care Team Providers Care Sucker Machine Operator Name Role Phone Alma Gonzalez MD Primary Care Provider [phone] Encounter Details Date Type Department Care Team (Late st Contact Info) Description 07/11/2011 Documentation [facility] [place] [address] [place] [address] Family Medicine, Physician [address] [place], [place] 457581 Social History Tobacco Use Types Packs/Day Years [...] on filedocumented in this encounter Care Teams Sucker Machine Operator Relationship Specialty Start Date End Date Alma Gonzalez MD [address] [place] [address] [place] [address] PCP - General 05/16/17 05/12/23 documented as of this encounter
[2025-01-27 03:56] LABS: Syphilis Screen Nonreactive (Nonreactive)
[2025-01-27 04:08] LABS: HIV AB/AG Nonreactive (Nonreactive); HIV Num 1 0.05 S/CO (0.00-0.99)
== END 2025-01-26 10:09 | disposition home or self-care (01) ==
LOC: HO.HMGCLDS 10:08
PROVIDERS: PCP Internal Medicine; Visit Provider Internal Medicine
DX: Z11.9 Encounter for screening for infectious and parasitic diseases, unspecified (principal)
CPT/HCPCS: 36415; 86780; 87389

== ENCOUNTER 2025-09-23 15:47 | Outpatient (AMB) | payer OTHER, SELFPAY ==
[2025-09-23 15:53] VITALS: BP 110/62; PULSE 84; TEMP 36.9; O2SAT 98; BMI 27.4
--- NOTE | 2025-09-23 15:53 | MHC.OFFWIV ---
Intake Vital Signs 09/23/25 15:53 Height 5 ft 7 in Weight 175 lb BMI 27.4 BP 110/62 Blood Pressure Location Rt brachial Position Sitting Pulse 84 Pulse Source Pulse Oximeter Temp 98.4 F Temp Source Oral Pulse Oximetry (%) 98 Oxygen Delivery Method Room Air Intake Visit Reasons: EP-lt top of eye swollen Intake Note: pt presents with red and swollen LT left eyelid x2 days- states it feels like a stye and that she woke up with some crust to eye Patient Tobacco Use Status: Never used Tobacco Allergies No Known Allergies Allergy (Verified 09/23/25 15:55) Do you need a note to return to daycare/school/sports/work: No HPI HPI Comments History of Present Illness Details Patient is a 25yo F with hx of styes who presents with L upper eye redness/swelling Occured yesterday + crusting in AM Tender to palpation of upper L eyelide +itchy and uncomfortable No pain scale given No similar symptoms to R eye Denies glasses or contact use Denies vision changes, trauma or injury. No changes in vision PFSH Medical History Factor 5 Leiden mutation, heterozygous Acne Surgical History History of eye surgery Hx of wisdom tooth extraction Family History (Updated 10/19/24 @ 13:21 by Julieta Cristobal CMA) Mother Factor 5 Leiden mutation, heterozygous Father Liver transplant recipient Alcoholic cirrhosis of liver Family/Other Breast cancer Family/Other Breast cancer Other Substance use disorder Social History Household Members: Family Housing: House Alcohol intake: current Alcohol intake frequency: a few times a month Patient Tobacco Use Status: Never used Tobacco Tobacco use type: Smokeless Tobacco e-Cigarette/Vaping Use: Currently Using Second Hand Smoke Exposure: No Substance Use Type: Marijuana service: No Current occupational status: employed 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 Speaking full sentences. Skin: Warm dry throughout. + edema and erythema noted to L upper eyelid lateral aspect. No lesions or rashes. No other periorbital edema. Eye: EOMI, PERRL. No conjunctival erythema or discharge. No FB under R eyelids upper/lower. No FB under L lower lid. +ttp L upper eyelid lateral aspect. + small stye noted under L upper eyelid on lateral aspect Respiratory: No respiratory distress Neurology: Alert. No aphasia or facial droop. Gait without abnormality Psych: Good mood and affect Vital Signs: Last Vital Signs Temp 98.4 F 09/23/25 15:53 Pulse 84 09/23/25 15:53 BP 110/62 09/23/25 15:53 Pulse Ox 98 09/23/25 15:53 Oxygen Delivery Method Room Air 09/23/25 15:53 BMI result Body Mass Index 27.4 Assessment & Plan Assessment & Plan (1) Stye: Code(s): H00.019 - Hordeolum externum unspecified eye, unspecified eyelid Qualifiers: Laterality: left Eyelid: upper Qualified Code(s): H00.014 - Hordeolum externum left upper eyelid Plan: Patient seen and evaluated. + internal L upper eyelid stye Discussed drops to help with inflammation Hdad elevation Warm compress Avoid rubbing Patient gave verbal understanding and had no additional questions or concerns at time of discharge All questions answered Medications: New ofloxacin 0.3% put 1 drp into affected eye every 4 h x 2 days, then 1-2 drps 4 times/day days 3-7 ophthalmic (eye) 10 mL 0RF Coding Level of Care Code Est Pt Level 3 (02018) Diagnoses Hordeolum externum of left upper eyelid H00.014 Laterality: left Eyelid: upper
--- OUTSIDE RECORDS SUMMARY | 2025-09-23 16:40 | XMS_ITS | Encounter Summary ---
Author Organization [facility] Address [address] [place] [address] 270[address] Phone Care Team Providers Care Linen Grader Name Role Phone Alma Gonzalez MD Primary Care Provider [phone] Encounter Details Date Type Department Care Team (Late st Contact Info) Description 09/01/2012 Documentation [facility] [place] [address] [place] [address] Family Medicine, Physician [address] [place], [place] 671831 Social History Tobacco Use Types Packs/Day Years [...] on filedocumented in this encounter Care Teams Linen Grader Relationship Specialty Start Date End Date Alma Gonzalez MD [address] [place] [address] [place] [address] PCP - General 05/16/17 05/12/23 documented as of this encounter
--- OUTSIDE RECORDS SUMMARY | 2025-09-23 16:40 | XMS_ITS | Encounter Summary ---
Author Organization [facility] Address [address] [place] [address] 8[address] Phone Care Team Providers Care Styrene Dehydration Reactor Operator Name Role Phone Alma Gonzalez MD Primary Care Provider [phone] Encounter Details Date Type Department Care Team (Late st Contact Info) Description 08/12/2014 Documentation [facility] [place] [address] [place] [address] Family Medicine, Physician [address] [place], [place] 274281 Social History Tobacco Use Types Packs/Day Years [...] on filedocumented in this encounter Care Teams Styrene Dehydration Reactor Operator Relationship Specialty Start Date End Date Alma Gonzalez MD [address] [place] [address] [place] [address] PCP - General 05/16/17 05/12/23 documented as of this encounter
--- OUTSIDE RECORDS SUMMARY | 2025-09-23 16:40 | XMS_ITS | Encounter Summary ---
Author Organization [facility] Address [address] [place] [address] Phone Care Team Providers Care Link Trainer Operator Name Role Phone Alma Gonzalez MD Primary Care Provider [phone] Encounter Details Date Type Department Care Team (Late st Contact Info) Description 08/17/2015 [place]ation [facility] [place] [address] [place] [address] Family Medicine, Physician [address] [place], [place] 601331 Social History Tobacco Use Types Packs/Day Years [...] on filedocumented in this encounter Care Teams Link Trainer Operator Relationship Specialty Start Date End Date Alma Gonzalez MD [address] [place] [address] [place] [address] PCP - General 05/16/17 05/12/23 documented as of this encounter
--- OUTSIDE RECORDS SUMMARY | 2025-09-23 16:40 | XMS_ITS | Encounter Summary ---
Author Organization [facility] Address [address] [place] [address] Phone Care Team Providers Care Fish And Game Warden Name Role Phone Alma Gonzalez MD Primary Care Provider [phone] Encounter Details Date Type Department Care Team (Late st Contact Info) Description 08/23/2016 Documentation [facility] [place] [address] [place] [address] Family Medicine, Physician [address] [place], [place] 922051 Social History Tobacco Use Types Packs/Day Years [...] on filedocumented in this encounter Care Teams Fish And Game Warden Relationship Specialty Start Date End Date Alma Gonzalez MD [address] [place] [address] [place] [address] PCP - General 05/16/17 05/12/23 documented as of this encounter
--- OUTSIDE RECORDS SUMMARY | 2025-09-23 16:40 | XMS_ITS | Encounter Summary ---
Author Organization [facility] Address [address] [place] [address] Phone Care Team Providers Care Shaker Screen Operator Name Role Phone Alma Gonzalez MD Primary Care Provider [phone] Encounter Details Date Type Department Care Team (Late st Contact Info) Description 07/11/2011 [place]ation [facility] [place] [address] [place] [address] Family Medicine, Physician [address] [place], [place] 072711 Social History Tobacco Use Types Packs/Day Years [...] on filedocumented in this encounter Care Teams Shaker Screen Operator Relationship Specialty Start Date End Date Alma Gonzalez MD [address] [place] [address] [place] [address] PCP - General 05/16/17 05/12/23 documented as of this encounter
--- OUTSIDE RECORDS SUMMARY | 2025-09-23 16:40 | XMS_ITS | Encounter Summary ---
Author Organization [facility] Address [address] [place] [address] Phone Care Team Providers Care Settlement Technician Name Role Phone Alma Gonzalez MD Primary Care Provider [phone] Encounter Details Date Type Department Care Team (Late st Contact Info) Description 08/23/2016 Documentation [facility] [place] [address] [place] [address] Family Medicine, Physician [address] [place], [place] 270781 Social History Tobacco Use Types Packs/Day Years [...] on filedocumented in this encounter Care Teams Settlement Technician Relationship Specialty Start Date End Date Alma Gonzalez MD [address] [place] [address] [place] [address] PCP - General 05/16/17 05/12/23 documented as of this encounter
--- OUTSIDE RECORDS SUMMARY | 2025-09-23 16:40 | XMS_ITS | Encounter Summary ---
Author Organization [facility] Address [address] [place] [address] Phone Care Team Providers Care Nursing Home Director Name Role Phone Alma Gonzalez MD Primary Care Provider [phone] Encounter Details Date Type Department Care Team (Late st Contact Info) Description 07/17/2011 Documentation [facility] [place] [address] [place] [address] Family Medicine, Physician [address] [place], [place] 745001 Social History Tobacco Use Types Packs/Day Years [...] on filedocumented in this encounter Care Teams Nursing Home Director Relationship Specialty Start Date End Date Alma Gonzalez MD [address] [place] [address] [place] [address] PCP - General 05/16/17 05/12/23 documented as of this encounter
--- OUTSIDE RECORDS SUMMARY | 2025-09-23 16:40 | XMS_ITS | Encounter Summary ---
Author Organization [facility] Address [address] [place] [address] Phone Care Team Providers Care Learning Support Assistant Name Role Phone Alma Gonzalez MD Primary Care Provider [phone] Encounter Details Date Type Department Care Team (Late st Contact Info) Description 11/16/2015 Documentation [facility] [place] [address] [place] [address] Family Medicine, Physician [address] [place], [place] 116981 Social History Tobacco Use Types Packs/Day Years [...] on filedocumented in this encounter Care Teams Learning Support Assistant Relationship Specialty Start Date End Date Alma Gonzalez MD [address] [place] [address] [place] [address] PCP - General 05/16/17 05/12/23 documented as of this encounter
--- OUTSIDE RECORDS SUMMARY | 2025-09-23 16:40 | XMS_ITS | Encounter Summary ---
Author Organization [facility] Address [address] [place] [address] Phone Care Team Providers Care Collar Baster Name Role Phone Alma Gonzalez MD Primary Care Provider [phone] Encounter Details Date Type Department Care Team (Late st Contact Info) Description 04/26/2011 Documentation [facility] [place] [address] [place] [address] Family Medicine, Physician [address] [place], [place] 385671 Social History Tobacco Use Types Packs/Day Years [...] on filedocumented in this encounter Care Teams Collar Baster Relationship Specialty Start Date End Date Alma Gonzalez MD [address] [place] [address] [place] [address] PCP - General 05/16/17 05/12/23 documented as of this encounter
--- OUTSIDE RECORDS SUMMARY | 2025-09-23 16:40 | XMS_ITS | Encounter Summary ---
Author Organization [facility] Address [address] [place] [address] Phone Care Team Providers Care Lifeguard Name Role Phone Alma Gonzalez MD Primary Care Provider [phone] Encounter Details Date Type Department Care Team (Late st Contact Info) Description 06/01/2013 Documentation [facility] [place] [address] [place] [address] Family Medicine, Physician [address] [place], [place] 051911 Social History Tobacco Use Types Packs/Day Years [...] on filedocumented in this encounter Care Teams Lifeguard Relationship Specialty Start Date End Date Alma Gonzalez MD [address] [place] [address] [place] [address] PCP - General 05/16/17 05/12/23 documented as of this encounter
--- OUTSIDE RECORDS SUMMARY | 2025-09-23 16:40 | XMS_ITS | Encounter Summary ---
Author Organization [facility] Address [address] [place] [address] Phone Care Team Providers Care Parts Processor Name Role Phone Alma Gonzalez MD Primary Care Provider [phone] Encounter Details Date Type Department Care Team (Late st Contact Info) Description 05/22/2017 Conversion Encounter [facility] [address] [place] [address] Social History Tobacco Use Types Packs/Day Years [...] on filedocumented in this encounter Care Teams Parts Processor Relationship Specialty Start Date End Date Alma Gonzalez MD [address] [place] [address] PCP - General 05/16/17 05/12/23 documented as of this encounter
--- OUTSIDE RECORDS SUMMARY | 2025-09-23 16:40 | XMS_ITS | Encounter Summary ---
Author Organization [facility] Address [address] [place] [address] Phone Care Team Providers Care Steam Conditioner Operator Name Role Phone Alma Gonzalez MD Primary Care Provider [phone] Encounter Details Date Type Department Care Team (Late st Contact Info) Description 04/26/2011 Documentation [facility] [place] [address] [place] [address] Family Medicine, Physician [address] [place], [place] 758811 Social History Tobacco Use Types Packs/Day Years [...] on filedocumented in this encounter Care Teams Steam Conditioner Operator Relationship Specialty Start Date End Date Alma Gonzalez MD [address] [place] [address] [place] [address] PCP - General 05/16/17 05/12/23 documented as of this encounter
--- OUTSIDE RECORDS SUMMARY | 2025-09-23 16:40 | XMS_ITS | Encounter Summary ---
Author Organization [facility] Address [address] [place] [address] Phone Care Team Providers Care Pharmaceutical Laboratory Technician Name Role Phone [place] Gonzalez MD Primary Care Provider [phone] Encounter Details Date Type Department Care Team (Late st Contact Info) Description 04/26/2011 Documentation [facility] [place] [address] [place] [address] Family Medicine, Physician [address] [place], [place] 368961 Social History Tobacco Use Types Packs/Day Years [...] on filedocumented in this encounter Care Teams Pharmaceutical Laboratory Technician Relationship Specialty Start Date End Date [place] Gonzalez MD [address] [place] [address] [place] [address] PCP - General 05/16/17 05/12/23 documented as of this encounter
--- OUTSIDE RECORDS SUMMARY | 2025-09-23 16:40 | XMS_ITS | Encounter Summary ---
Author Organization [facility] Address [address] [place] [address] Phone Care Team Providers Care Cement Railroad Car Loader Name Role Phone [place] Gonzalez MD Primary Care Provider [phone] Encounter Details Date Type Department Care Team (Late st Contact Info) Description 05/14/2012 Documentation [facility] [place] Family Medicine [address] [place] [address] Family Medicine, Physician [address] [place], [place] 251831 Social History Tobacco Use Types Packs/Day Years [...] on filedocumented in this encounter Care Teams Cement Railroad Car Loader Relationship Specialty Start Date End Date [place] Gonzalez MD [address] [place] [address] [place] [address] PCP - General 05/16/17 05/12/23 documented as of this encounter
--- OUTSIDE RECORDS SUMMARY | 2025-09-23 16:40 | XMS_ITS | Encounter Summary ---
Author Organization [facility] Address [address] [place] [address] Phone Care Team Providers Care Woods Rider Name Role Phone [place] Gonzalez MD Primary Care Provider [phone] Encounter Details Date Type Department Care Team (Late st Contact Info) Description 08/31/2012 Documentation [facility] [place] Family Medicine [address] [place] [address] Family Medicine, Physician [address] [place], [place] [address]81 Social History Tobacco Use Types Packs/Day Years [...] on filedocumented in this encounter Care Teams Woods Rider Relationship Specialty Start Date End Date [place] Gonzalez MD [address] [place] [address] [place] [address] PCP - General 05/16/17 05/12/23 documented as of this encounter
--- OUTSIDE RECORDS SUMMARY | 2025-09-23 16:40 | XMS_ITS | Encounter Summary ---
Author Organization [facility] Address [address] [place] [address] Phone Care Team Providers Care Head Cook Name Role Phone [place] Gonzalez MD Primary Care Provider [phone] Encounter Details Date Type Department Care Team (Late st Contact Info) Description 04/19/2011 Documentation [facility] [place] [address] [place] [address] Family Medicine, Physician [address] [place], [place] 376181 Social History Tobacco Use Types Packs/Day Years [...] on filedocumented in this encounter Care Teams Head Cook Relationship Specialty Start Date End Date [place] Gonzalez MD [address] [place] [address] [place] [address] PCP - General 05/16/17 05/12/23 documented as of this encounter
--- OUTSIDE RECORDS SUMMARY | 2025-09-23 16:40 | XMS_ITS | Encounter Summary ---
Author Organization [facility] Address [address] [place] [address] Phone Care Team Providers Care Director Social Name Role Phone [place] Gonzalez MD Primary Care Provider [phone] Encounter Details Date Type Department Care Team (Late st Contact Info) Description 06/01/2013 Documentation [facility] [place] Family Medicine [address] [place] [address] Family Medicine, Physician [address] [place], [place] 351091 Social History Tobacco Use Types Packs/Day Years [...] on filedocumented in this encounter Care Teams Director Social Relationship Specialty Start Date End Date [place] Gonzalez MD [address] [place] [address] [place] [address] PCP - General 05/16/17 05/12/23 documented as of this encounter
--- OUTSIDE RECORDS SUMMARY | 2025-09-23 16:40 | XMS_ITS | Clinical Summary ---
Author Organization [facility] Address [address] [place] [address] Phone Care Team Providers Care Marzipan Molder Name Role Phone Unavailable Primary Care Provider [...] & Plan (12/20/2020 10:09 AM EDT): Rigobertoi Arts And Crafts Teacher says that Noreen can get Covid 19 [...] 75 12/26/2021 9:09 AM EDT Temperature 36.1 C (96.9 F) 12/26/2021 9:09 AM EDT Respiratory Rate - - Oxygen Saturation - [...] 08/02/2003, Additional history exists Influenza Vaccines (#1) 2025 12/21/19, 09/06/2019, 09/01/2018, Additional history exists COVID-19 Vaccine (2024-2 6 season) 2025 12/26/2021, 01/25/2021, 01/04/2021 Hepatitis B Vaccines Completed [...] Completed 09/06/2019, 013 Procedures * Due to [facility] law, this organization might not be sharing sensitive test results. Procedure Name Priority Date/Time Associated Diagnosis Comments CHLAMYDIA AND GONORRHEA, AMPLIFIED Routine 12/26/2021 9:20 AM EDT Encounter for screening examination for sexually transmitted disease from Last 3 Months or Most Recently Relevant to Health Maintenance Results * Due to [employer] law, this organization might not be sharing sensitive test results. * Chlamydia and Gonorrhoea, Amplified (12/26/2021 9:20 AM EDT) Chlamydia Trachomatis, DNA Probe NEGATIVE (NEG) [facility] Comment: No Chlamydia Trachomatis RNA detected in this patient's sample (REFERENCE RANGE/NORMAL VALUE: NOT DETECTED) Note: This test uses senior sales executive- mediated amplification method to detect rRNA from C. Trachomatis URINE GC AMP PROBE NEGATIVE (NEG) [facility] Comment: No Neisseria Gonorrhoeae RNA detected in this patient's sample (REFERENCE RANGE/NORMAL VALUE: NOT DETECTED) NOTE: This test uses senior sales executive-mediated amplification method to detect rRNA from N.Gonorrhoeae. [...] without risk of sexual abuse. Consult the [facility] if needed. Contact phone number . Therapeutic failure or success cannot be determined with the Aptima Combo2 assay since nucleic acid may persist following appropriate antimicrobial therapy. The Centers for Disease Control and Prevention (CDC) recommends confirmatory retesting using culture or a different nucleic acid amplification test when positive results occur, if indicated. Testing performed or reported by [facility], a Service of [facility], [address] [place] [address] Jonathan Mobley MD, Integrated Circuit Design Engineer [facility]# [id number] Urine (Urine) 12/26/2021 9:2 0 AM EDT 12/26/2021 6:21 PM EDT us [place] Gonzalez MD LAB MICROBIOLOGY - GENERAL ORDER SHERMAN Final Result [facility] from Last 3 Months or Most Recently Relevant to Health Maintenance
--- OUTSIDE RECORDS SUMMARY | 2025-09-23 16:40 | XMS_ITS | Encounter Summary ---
Author Organization [facility] Address [address] [place] [address] Phone Care Team Providers Care Boardinghouse Keeper Name Role Phone [place] Gonzalez MD Primary Care Provider [phone] Encounter Details Date Type Department Care Team (Late st Contact Info) Description 01/06/2014 [place]ation [facility] [place] [address] [place] [address] Family Medicine, Physician [address] [place], [place] 679851 Social History Tobacco Use Types Packs/Day Years [...] on filedocumented in this encounter Care Teams Boardinghouse Keeper Relationship Specialty Start Date End Date [place] Gonzalez MD [address] [place] [address] [place] [address] PCP - General 05/16/17 05/12/23 documented as of this encounter
--- OUTSIDE RECORDS SUMMARY | 2025-09-23 16:40 | XMS_ITS | Encounter Summary ---
Author Organization [facility] Address [address] [place] [address] Phone Care Team Providers Care Education Officer Name Role Phone [place] Gonzalez MD Primary Care Provider [phone] Encounter Details Date Type Department Care Team (Late st Contact Info) Description 01/06/2014 Documentation [facility] [place] Family Medicine [address] [place] [address] Family Medicine, Physician [address], [place] 579651 Social History Tobacco Use Types Packs/Day Years [...] on filedocumented in this encounter Care Teams Education Officer Relationship Specialty Start Date End Date [place] Gonzalez MD [address] [place] [address] [place] [address] PCP - General 05/16/17 05/12/23 documented as of this encounter
--- OUTSIDE RECORDS SUMMARY | 2025-09-23 16:40 | XMS_ITS | Encounter Summary ---
Author Organization [facility] Address [address] [place] [address] Phone Care Team Providers Care Controls Operator Molded Goods Name Role Phone [place] Gonzalez MD Primary Care Provider [phone] Encounter Details Date Type Department Care Team (Late st Contact Info) Description 08/12/2014 Documentation [facility] [place] Family Medicine [address] [place] [address] Family Medicine, Physician [address] [place], [place] 577511 Social History Tobacco Use Types Packs/Day Years [...] on filedocumented in this encounter Care Teams Controls Operator Molded Goods Relationship Specialty Start Date End Date [place] Gonzalez MD [address] [place] [address] [place] [address] PCP - General 05/16/17 05/12/23 documented as of this encounter
--- OUTSIDE RECORDS SUMMARY | 2025-09-23 16:40 | XMS_ITS | Encounter Summary ---
Author Organization [facility] Address [address] [place] [address] Phone Care Team Providers Care Support Merchandiser Name Role Phone [place] Gonzalez MD Primary Care Provider [phone] Encounter Details Date Type Department Care Team (Late st Contact Info) Description 08/06/2013 Documentation [facility] [place] [address] [place] [address] Family Medicine, Physician [address] [place], [place] 190141 Social History Tobacco Use Types Packs/Day Years [...] on filedocumented in this encounter Care Teams Support Merchandiser Relationship Specialty Start Date End Date [place] Gonzalez MD [address] [place] [address] [place] [address] PCP - General 05/16/17 05/12/23 documented as of this encounter
--- OUTSIDE RECORDS SUMMARY | 2025-09-23 16:40 | XMS_ITS | Encounter Summary ---
Author Organization [facility] Address [address] [place] [address] Phone Care Team Providers Care Security Associate Name Role Phone [place] Gonzalez MD Primary Care Provider [phone] Encounter Details Date Type Department Care Team (Late st Contact Info) Description 08/22/2016 Documentation [facility] [place] Family Medicine [address] [place] [address] Family Medicine, Physician [address] [place], [place] 463131 Social History Tobacco Use Types Packs/Day Years [...] on filedocumented in this encounter Care Teams Security Associate Relationship Specialty Start Date End Date [place] Gonzalez MD [address] [place] [address] [place] [address] PCP - General 05/16/17 05/12/23 documented as of this encounter
--- OUTSIDE RECORDS SUMMARY | 2025-09-23 16:40 | XMS_ITS | Encounter Summary ---
Author Organization [facility] Address [address] [place] [address] Phone Care Team Providers Care Bottom Sprayer Name Role Phone [place] Gonzalez MD Primary Care Provider [phone] Encounter Details Date Type Department Care Team (Late st Contact Info) Description 08/17/2015 Documentation [facility] [place] Family Medicine [address] [place] [address] Family Medicine, Physician [address] [place], [place] 240831 Social History Tobacco Use Types Packs/Day Years [...] on filedocumented in this encounter Care Teams Bottom Sprayer Relationship Specialty Start Date End Date [place] Gonzalez MD [address] [place] [address] [place] [address] PCP - General 05/16/17 05/12/23 documented as of this encounter
--- OUTSIDE RECORDS SUMMARY | 2025-09-23 16:40 | XMS_ITS | Encounter Summary ---
Author Organization [facility] Address [address] [place] [address] Phone Care Team Providers Care Apparel Embroidery Digitizer Name Role Phone [place] Gonzalez MD Primary Care Provider Encounter Details Date Type Department Care Team (Late st Contact Info) Description 06/01/2013 Documentation [facility] [place] [address] [place] [address] Family Medicine, Physician [address] [place], [place] 550[address] Social History Tobacco Use Types Packs/Day Years [...] on filedocumented in this encounter Care Teams Apparel Embroidery Digitizer Relationship Specialty Start Date End Date [place] Gonzalez MD [address] [place] [address] [place] [address] PCP - General 05/16/17 05/12/23 documented as of this encounter
--- OUTSIDE RECORDS SUMMARY | 2025-09-23 16:40 | XMS_ITS | Encounter Summary ---
Author Organization [facility] Address [address] [place] [address] Phone Care Team Providers Care Expert Medical Writer Name Role Phone [place] Gonzalez MD Primary Care Provider [phone] Encounter Details Date Type Department Care Team (Late st Contact Info) Description 05/14/2012 Documentation [facility] [place] Family Medicine [address] [place] [address] Family Medicine, Physician [address] [place], [place] 274801 Social History Tobacco Use Types Packs/Day Years [...] on filedocumented in this encounter Care Teams Expert Medical Writer Relationship Specialty Start Date End Date [place] Gonzalez MD [address] [place] [address] [place] [address] PCP - General 05/16/17 05/12/23 documented as of this encounter
--- OUTSIDE RECORDS SUMMARY | 2025-09-23 16:40 | XMS_ITS | Encounter Summary ---
Author Organization [facility] Address [address] [place] [address] Phone Care Team Providers Care Douper Name Role Phone [place] Gonzalez MD Primary Care Provider [phone] Encounter Details Date Type Department Care Team (Late st Contact Info) Description 08/06/2013 Documentation [facility] [place] [address] [place] [address] Family Medicine, Physician [address] [place], [place] 368031 Social History Tobacco Use Types Packs/Day Years [...] on filedocumented in this encounter Care Teams Douper Relationship Specialty Start Date End Date [place] Gonzalez MD [address] [place] [address] [place] [address] PCP - General 05/16/17 05/12/23 documented as of this encounter
== END 2025-09-23 16:07 | disposition home or self-care (01) ==
PROVIDERS: PCP Internal Medicine; Visit Provider Physician Assistant
DX: H00.014 Hordeolum externum left upper eyelid (principal)

== ENCOUNTER → 2025-09-23 15:47 | Outpatient (BNVA) | payer OTHER, SELFPAY | PROVIDERS: PCP Internal Medicine; Visit Provider Physician Assistant | DX: H00.014 Hordeolum externum left upper eyelid (principal) | CPT/HCPCS: 99212 ==